=== PATIENT | female | born 1945 | race Caucasian/White ===

== ENCOUNTER 2018-10-18 08:41 | Inpatient (IN) | payer MEDICARE, OTHER, SELFPAY ==
[2018-10-18] VITALS (34 sets, daily range): BP systolic 112–150; BP diastolic 59–85; PULSE 52–72; RESP 14–23; TEMP 36.5–37.3; O2SAT 94–100
--- NOTE | 2018-10-18 08:56 | DI.COMBO_ITS ---
SYMPTOM/DIAGNOSIS: FELL , PAIN,PREOP, HIP FX, EVALUATE POSTERIOR DISPLACEMENT RIGHT HIP AND PELVIS: The lateral views are suboptimal and the femoral neck region is not visualized. There is a subcapital fracture of the proximal right femur without angulation or displacement. The hip joint spaces are well maintained. There is mild bilateral acetabular spurring. No additional fractures are identified. The SI joints and pubic symphysis are not widened. IMPRESSION: Nondisplaced subcapital fracture of the right femur. AP CHEST: There are no prior comparison exams. The heart size is normal. The lungs are well inflated and clear. No infiltrate or effusion is seen. There is no gross evidence of a pneumothorax. IMPRESSION: Negative supine chest. RIGHT HIP CT: There is a nondisplaced fracture of the subcapital region of the proximal femur. There is minimal impaction. No additional fractures are identified. There is acetabular spurring and subchondral cysts seen in the inferior femoral head and inferior acetabulum. IMPRESSION: Subcapital fracture of the right femur. RIGHT HIP IN OR: Fluoroscopy Time: 64.2 seconds Fluoroscopy was provided in the OR for Dr. Saldaña. Hard copy images show placement of partially threaded screws in the femoral neck fixation for fixation of the subcapital fracture. The alignment appears anatomic.
--- NOTE | 2018-10-18 08:57 | W.ED.GENAD ---
Discharge Plan Disposition Patient Disposition: [facility] INPATIENT Condition: Stable Discharge Details Chief Complaint: Orthopedic Clinical Impression: Closed fracture of right hip Reason For Visit: ENRIQUE Primary Care Provider: Mary Jo Reese ED Provider: Giovany Arzola Home Meds and New Rx's Prescriptions: No Action multivitamin [One Daily] 1 EACH tablet 1 tab PO DAILY RF: 0 calcium carbonate-vitamin D3 [Caltrate with Vitamin D3] 1 EACH tablet 1 tab PO BID RF: 0 Medical Decision Making 73-year-old female presents from home after slip and fall on icy ground. She did not strike her head and denies loss of consciousness, neck/back/chest/abdomen pain. She has right hip pain that is worse with movement. IV placed, patient given small aliquot of analgesia, referred for XR. Radiographs reveal concern for right subcapital/impacted hip fracture. Reviewed radiographs with Dr. Saldaña, noncontrast CT images ordered which confirmed an impacted hip fracture. Patient to be admitted to Dr. Saldaña Lab Data Lab results reviewed: Yes I reviewed the patient's lab results. Laboratory Results - last 24 hr 10/18/18 10/18/18 10/18/18 10:21 10:21 10:21 WBC 7.29 RBC 4.20 Hgb 12.6 Hct 38.3 MCV 91.2 MCH 30.0 MCHC 32.9 RDW 13.6 Plt Count 248 MPV 9.8 Immature Gran % 0.1 Neutrophils % 77.3 Lymphocytes % 13.9 Monocytes % 6.0 Eosinophils % 2.3 Basophils % 0.4 Absolute Neutrophils 5.63 Absolute Lymphocytes 1.01 L Absolute Monocytes 0.44 Absolute Eosinophils 0.17 Absolute Basophils 0.03 PT 9.2 L INR 0.9 APTT 22.7 Sodium 144 Potassium 3.7 Chloride 108 H Carbon Dioxide 27.5 Anion Gap 8.5 BUN 13 Creatinine 0.79 Estimated GFR/1.73 m2 >= 60.00 Glucose 96 Calcium 9.0 Magnesium 1.8 Total Bilirubin 0.5 AST 26 ALT 25 Alkaline Phosphatase 67 Troponin I < 0.02 Total Protein 7.1 Albumin 3.1 L Patient ABO/Rh Antibody Screen 10/18/18 10:21 WBC RBC Hgb Hct MCV MCH MCHC RDW Plt Count MPV Immature Gran % Neutrophils % Lymphocytes % Monocytes % Eosinophils % Basophils % Absolute Neutrophils Absolute Lymphocytes Absolute Monocytes Absolute Eosinophils Absolute Basophils PT INR APTT Sodium Potassium Chloride Carbon Dioxide Anion Gap BUN Creatinine Estimated GFR/1.73 m2 Glucose Calcium Magnesium Total Bilirubin AST ALT Alkaline Phosphatase Troponin I Total Protein Albumin Patient ABO/Rh A Positive Antibody Screen Negative ECG Data Attestation: I personally reviewed and interpreted this ECG (s) as follows: Prior ECG tracings: available for review Interpretation: Regular sinus rhythm with a rate of 54, there is left bundle branch block pattern that is unchanged versus comparison from 2018, no ST segment changes HPI General Mode of arrival: ambulatory. Date/Time Provider Initiated Documentation: 10/18/18 08:47. Limitations to Documentation: no limitations. Information obtained by: patient. History of Present Illness 73 year old F presents to the emergency department with the chief complaint of Right hip pain after fall, described as moderate, Quality is described as aching, and is localized to the right and lower extremity. Patient reports no radiation. Patient started experiencing this minute(s) and it has been constant. Rest improves symptom(s), Movement worsens symptoms . Patient notes no other symptoms.; denies headaches. Patient did receive the following treatments prior to arrival, other (IV placed) Related Data Home Medications Medication Instructions Recorded Confirmed calcium carbonate-vitamin D3 1 tab PO BID 11/23/12 10/18/18 [Caltrate with Vitamin D3] multivitamin [One Daily] 1 tab PO DAILY 11/23/12 10/18/18 Allergies Allergy/AdvReac Type Severity Reaction Status Date / Time codeine AdvReac Mild VOMITING Unverified 10/18/18 08:47 shellfish derived AdvReac Mild NAUSEA; Unverified 10/18/18 08:47 HEADACHE General Stated Complaint: Orthopedic [place]: 3 Review of Systems Review of Systems 6 systems reviewed and otherwise - [facility] Surgical History Appendectomy (~1954) Open Carpal Tunnel release (~1997) Skin Cancer Removal (~2009) Tonsillectomy and adenoidectomy (~194) Family History Mother No problems noted. Father Alcohol abuse Heart disease Myocardial infarction Brother No problems noted. Grandfather Allergy to anesthetic Grandfather No problems noted. Grandmother Neoplasm Grandmother No problems noted. Daughter No problems noted. Daughter No problems noted. Social History Smoking and Tabacco status: Never Exam Narrative Exam Narrative: GEN: awake, alert, oriented 3. Pleasant, well groomed, interactive. HEAD: Normocephalic, atraumatic ENT: Mucous membranes moist, oropharynx unremarkable, External ear exam unremarkable EYES: PERRL, EOMI NECK: Full ROM, no MAICO, no menigismus CHEST/RESP: Nontender, clear to auscultation bilateral, no wheeze/rhonchi/rales CARDIOVASCULAR: RRR, no murmur, rub tyrel. 2+ Rad pulse bilateral ABDOMEN: Soft, nontender, no mass. +Bowel sounds EXT: Right lower extremity held in flexion. Tender overlying right lateral hip/greater trochanter. Minimal discomfort with rotation. 2+ DP bilaterally. Sensation intact throughout. Motor exam of hip limited but distal graded at 5 out of 5 no edema, no rash Neuro: Grossly normal neurologic exam, conversant, interactive. Psych: Speech fluent, thoughts congruent, affect normal Course Vital Signs Temperature 36.7 C 10/18/18 08:42 Pulse 54 L 10/18/18 08:42 Respiratory Rate 18 10/18/18 08:42 Blood Pressure 150/74 H 10/18/18 08:42 Pulse Oximetry 100 10/18/18 08:42 Temperature 36.7 C 10/18/18 08:42 Temperature Source Temporal Artery Scan 10/18/18 08:42 Pulse 54 L 10/18/18 08:42 Respiratory Rate 18 10/18/18 08:42 Respiratory Effort Non-Labored 10/18/18 08:42 Blood Pressure 150/74 H 10/18/18 08:42 Blood Pressure Position Supine 10/18/18 08:42 Pulse Oximetry 100 10/18/18 08:42 Oxygen Delivery Method Room Air 10/18/18 08:42 Oxygen Flow Rate 0 10/18/18 08:42 Pain Level 2 10/18/18 08:46
[2018-10-18] MEDS: MORPHine 10 MG/ML VIAL 2 MG IVP (09:02)
--- NOTE | 2018-10-18 09:57 | DI.VRAD_ITS ---
EXAM: XR Right Hip with Pelvis when Performed, 2 or 3 Views EXAM DATE/TIME: 10/18/2018 8:57 AM CLINICAL HISTORY: 73 years old, female; Injury or trauma; Fall; Initial encounter; Blunt trauma (contusions or hematomas); Right; Hip TECHNIQUE: XR Right hip with pelvis when performed, 2 or 3 views COMPARISON: No relevant prior studies available. FINDINGS: Bones/joints: Degenerative changes in the lumbar spine and sacroiliac joints Curvilinear density in the subcapital region of the right hip may represent subtle impacted subcapital femoral neck fracture. Recommend CT for further evaluation. Soft tissues: Normal. Vasculature: Phleboliths in the pelvis. IMPRESSION: Curvilinear density in the subcapital region of the right hip may represent subtle impacted subcapital femoral neck fracture. Recommend CT for further evaluation. Dictated and Authenticated by: Idalia Spear MD. Ordering:NADIA Adair MD
--- NOTE | 2018-10-18 09:59 | DI.VRAD_ITS ---
EXAM: XR Chest, 1 View EXAM DATE/TIME: 10/18/2018 9:18 AM CLINICAL HISTORY: 73 years old, female; Injury or trauma; Fall; Initial encounter; Blunt trauma (contusions or hematomas); Injury details: Right hip injury TECHNIQUE: XR of the chest, 1 view. COMPARISON: No relevant prior studies available. FINDINGS: Lungs: Hyperexpanded lung dale consistent with COPD. No focal consolidation Pleural space: Unremarkable. No pleural effusion. No pneumothorax. Heart/Mediastinum: Unremarkable. No cardiomegaly. Bones/joints: Degenerative changes in the thoracic spine IMPRESSION: Hyperexpanded lung dale consistent with COPD Dictated and Authenticated by: Idalia Spear MD. Ordering:NADIA Adair MD
[2018-10-18] MEDS: Normal Saline 1,000 ML 150 ML IV (10:19)
--- NOTE | 2018-10-18 10:20 | NUR.NOTE ---
Nursing Note: [id number] Kiki Muñiz DCF called--states will call a DCF Utility Agent to come to ER to see pt/mother
[2018-10-18 10:33] LABS: Abs Immature Grans 0.01 k/cumm (0.0-0.09); Absolute Basophil Count 0.03 k/cumm (0.0-0.2); Absolute Eosinophil Count 0.17 k/cumm (0.0-0.7); Absolute Lymphocyte Count 1.01 k/cumm (1.2-3.4); Absolute Monocyte Count 0.44 k/cumm (0.11-0.7); Absolute Neutrophil Count 5.63 k/cumm (1.2-6.7); Basophils % 0.4; Eosinophils % 2.3; HCT 38.3 % (36.0-46.0); HGB 12.6 g/dL (12.0-15.5); Immature Grans % 0.1; Lymphocytes % 13.9; Mean Corp. HGB Concentration 32.9 g/dL (32.0-36.0); Mean Corpuscular Volume 91.2 fL (80-95); Mean Platelet Volume 9.8 fL (8.0-11.0); Neutrophils % 77.3; Platelet Count 248 x1000/uL (130-400); RBC Distribution Width 13.6 % (11.7-14.6); White Blood Cell Count 7.29 k/cumm (4.4-10.8)
[2018-10-18 10:46] LABS: INR 0.9 (0.9-1.1); PTT Activated 22.7 sec (21.0-31.4); Prothrombin Time 9.2 sec (9.3-11.0)
[2018-10-18 10:51] LABS: ALT 25 U/L (12-78); AST 26 U/L (15-37); Albumin 3.1 g/dL (3.4-5.0); Alkaline Phosphatase 67 U/L (46-116); Anion Gap 8.5 mmol/L (3-11); BUN 13 mg/dL (7-18); Bilirubin, Total 0.5 mg/dL (0.2-1.0); CO2 27.5 mmol/L (21.0-32.0); CREATININE 0.79 mg/dL (0.55-1.02); Chloride 108 mmol/L (98-107); Glucose 96 mg/dL (70-100); Magnesium 1.8 mg/dL (1.8-2.4); Potassium 3.7 mmol/L (3.5-5.1); Sodium 144 mmol/L (136-145); Total Protein 7.1 g/dL (6.4-8.2); Troponin I < 0.02 ng/mL (0.00-0.06)
--- NOTE | 2018-10-18 11:46 | DI.VRAD_ITS ---
EXAM: CT Right Lower Extremity Without IV Contrast. Hip EXAM DATE/TIME: 10/18/2018 9:58 AM CLINICAL HISTORY: 73 years old, female; Signs and symptoms; Other: R subcapital hip frx, evaluate posterior displacem TECHNIQUE: CT of the Right lower extremity without intravenous contrast was performed. Exam focused on the hip. All CT scans at this facility use at least one of these dose optimization techniques: automated exposure control; mA and/or kV adjustment per patient size (includes targeted exams where dose is matched to clinical indication); or iterative reconstruction. Coronal and sagittal reformatted images were created and reviewed. COMPARISON: CR XR hip RT complete AP pelvis 10/18/2018 9:09 AM FINDINGS: Bones/joints: There is subtle cortical irregularity at the RIGHT femoral head neck junction with slight impaction. No displacement. The femoral head is intact. Mild degenerative changes of the RIGHT hip joint with osteophyte formation, eburnation and subchondral cyst formation. Soft tissues: Mild subcutaneous edema overlies the RIGHT femur. Intraperitoneal space: Trace free fluid in the pelvis. IMPRESSION: Nondisplaced slightly impacted fracture of the RIGHT femoral head neck junction. Dictated and Authenticated by: Alix Venegas MD. Ordering:МАРИЯ Glynn MD
[2018-10-18 11:58] LABS: Bilirubin Negative (Negative); Blood Negative (Negative); Clarity Clear; Glucose Negative (Negative); Ketones Negative (Negative); Leukocyte Esterase Negative (Negative); Nitrite Negative (Negative); Specific Gravity 1.015 (1.005-1.025); Urobilinogen 0.2 EU/dL (Up TO 0.2); pH 8.5 (5-8)
[2018-10-18] MEDS: Acetaminophen 500 MG TAB 1000 MG PO ×2 (12:34→19:39)
[2018-10-18] MEDS: Celecoxib 200 MG CAP 400 MG PO (12:35)
--- NOTE | 2018-10-18 12:37 | MCONE_ITS ---
Date of service: 10/18/18 Time of Service: 12:36 Assessment and Plan (1) Nondisplaced fracture of neck of right femur: Current visit: Yes Status: Acute Evidence of a Nondisplaced right sided slightly impacted fracture of the Femoral head/neck. Fracture was traumatic following a mechanical fall on ice, without LOC. Mrs. Vogel has a prior history of LBBB, with an essentially normal ECHO showing intact LVEF without Wall Motion Abnormalities. Her current EKG is unchanged, and troponin is reassuring. She has no history of or evidence for underlying CAD, PVD, CHF, or any active cardiac conditions. She also has no history of prior TIA or CVA, CKD, or Diabetes. She is active, certainly with 4+ METs. Patient is very likely low risk for a Intermediate risk procedure - may proceed with planned surgery without need for any further cardiac testing or treatment. History of Present Illness Chief Complaint: Fall with Hip pain Narrative: 73 year old essentially healthy and active woman, being admitted from [facility] Emergency Department on 01/15 with an impacted right sided Subcapital Femoral Neck fracture following a fall. Mrs. 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 She was admitted in December of 2017 following a syncopal episode, likely related to a vasovagal episode following slamming of her finger in a car door. She was noted to have a LBBB on her EKG, but ruled out by serial cardiac biomarkers. She was maintained on telemetry without any arrhythmias. Following discharge she underwent further testing with an essentially normal ECHO (mildly elevated PAP of 45 mmHg), and a 2 week potline monitor showing brief bursts of SVTs and an underlying Bundle Branch Block. She reportedly exercises daily with a 3-4 mile walk and weights at night, and is otherwise very active without any anginal symptoms or Dyspnea on Exertion. Today she was walking her dog when she experienced a mechanical fall on the ice, with resultant right sided hip pain. She did not strike her head, and there was no LOC - she has clear memory of the event. Work-up in the ED consisted of essentially normal labs, including a negative Troponin and urinalysis, and a negative CXR. Imaging of her hip showed evidence of a Non- displaced slightly impacted right Femoral Head / Neck Junction Fracture. Prior to her surgical repair Internal Medicine consult was requested by Dr. Saldaña to provide Preoperative Evaluation. Review of Systems Review of Systems All systems reviewed & are unremarkable except as noted in HPI and below and Unobtainable due to (Right sided Hip pain) [facility] Surgical History Appendectomy (~1954) Open Carpal Tunnel release (~1997) Skin Cancer Removal (~2009) Tonsillectomy and adenoidectomy (~1948) Family History Mother No problems noted. Father Alcohol abuse Heart disease Myocardial infarction Brother No problems noted. Grandfather Allergy to anesthetic Grandfather No problems noted. Grandmother Neoplasm Grandmother No problems noted. Daughter No problems noted. Daughter No problems noted. 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 One lives in [place], and the other in [place], [place]. 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 No history of tobacco or alcohol use. Denies Illicit Drug use. Exam Narrative Exam Narrative: General: Patient appears comfortable, AAOX3, NAD Neck: Supple CV: Regular, nontachycardic, S1S2, No rubs, murmurs, or gallops. Pulmonary: Clear to auscultation bilaterally, no crackles, wheezing, or rhonchi on limited anterior and lateral exam Abdomen: + Bowel Sounds, soft, nontender, nondistended Vascular: Minimal b/l nonpitting lower extremity edema Neurologic: CN II-XII appear grossly intact. No focal deficits. Psych: Normal mood and affect. Results Last Vital Signs Temp 36.8 C 10/18/18 12:27 Pulse 59 L 10/18/18 12:16 Resp 18 10/18/18 08:42 BP 132/59 L 10/18/18 12:16 Pulse Ox 98 10/18/18 12:16 Labs : 10/18/18 10:21 10/18/18 10:21 Laboratory Results - last 24 hr 10/18/18 10/18/18 10/18/18 10:21 10:21 10:21 WBC 7.29 RBC 4.20 Hgb 12.6 Hct 38.3 MCV 91.2 MCH 30.0 MCHC 32.9 RDW 13.6 Plt Count 248 MPV 9.8 Immature Gran % 0.1 Neutrophils % 77.3 Lymphocytes % 13.9 Monocytes % 6.0 Eosinophils % 2.3 Basophils % 0.4 Absolute Neutrophils 5.63 Absolute Lymphocytes 1.01 L Absolute Monocytes 0.44 Absolute Eosinophils 0.17 Absolute Basophils 0.03 PT 9.2 L INR 0.9 APTT 22.7 Sodium 144 Potassium 3.7 Chloride 108 H Carbon Dioxide 27.5 Anion Gap 8.5 BUN 13 Creatinine 0.79 Estimated GFR/1.73 m2 >= 60.00 Glucose 96 Calcium 9.0 Magnesium 1.8 Total Bilirubin 0.5 AST 26 ALT 25 Alkaline Phosphatase 67 Troponin I < 0.02 Total Protein 7.1 Albumin 3.1 L Urine Color Urine Clarity Urine pH Ur Specific [place] Urine Protein Urine Ketones Urine Blood Urine Nitrite Urine Bilirubin Urine Urobilinogen Ur Leukocyte Esterase Urine Glucose Patient ABO/Rh Antibody Screen 10/18/18 10/18/18 10:21 11:43 WBC RBC Hgb Hct MCV MCH MCHC RDW Plt Count MPV Immature Gran % Neutrophils % Lymphocytes % Monocytes % Eosinophils % Basophils % Absolute Neutrophils Absolute Lymphocytes Absolute Monocytes Absolute Eosinophils Absolute Basophils PT INR APTT Sodium Potassium Chloride Carbon Dioxide Anion Gap BUN Creatinine Estimated GFR/1.73 m2 Glucose Calcium Magnesium Total Bilirubin AST ALT Alkaline Phosphatase Troponin I Total Protein Albumin Urine Color Yellow Urine Clarity Clear Urine pH 8.5 H Ur Specific [place] 1.015 Urine Protein Negative Urine Ketones Negative Urine Blood Negative Urine Nitrite Negative Urine Bilirubin Negative Urine Urobilinogen 0.2 Ur Leukocyte Esterase Negative Urine Glucose Negative Patient ABO/Rh A Positive Antibody Screen Negative Imaging Additional studies: Exam(s) [id number] US:Echocardiogram Heart Date of study: 02/13/2018 Transthoracic Echocardiography M-mode, complete 2D, complete spectral Doppler, and color Doppler *STUDY CONCLUSIONS* Impressions: Preserved LV function, mildly elevated PAP, frequent atrial and ventricular ectopy. Summary: 1. Left ventricle: The cavity size was normal. Wall thickness was normal. Intracavitary echoes most suggestive of abnormal apical trabeculations/muscle bands were present. Systolic function was normal. The estimated ejection fraction was 60-65%. Wall motion was normal; there were no regional wall motion abnormalities. 2. Aortic valve: There was trivial regurgitation. 3. Aortic root: The aortic root was at upper normal limits. 4. Ascending aorta: The ascending aorta was at upper normal limits. 5. Mitral valve: Mildly calcified annulus. There was mild regurgitation. 6. Right ventricle: The cavity size was normal. Wall thickness was normal. Systolic function was normal. 7. Pulmonary arteries: Pulmonary systolic pressure was mildly increased. PA peak pressure: 45mm Hg (S). EXAM: XR Right Hip with Pelvis when Performed, 2 or 3 Views EXAM DATE/TIME: 10/18/2018 8:57 AM CLINICAL HISTORY: 73 years old, female; Injury or trauma; Fall; Initial encounter; Blunt trauma (contusions or hematomas); Right; Hip TECHNIQUE: XR Right hip with pelvis when performed, 2 or 3 views COMPARISON: No relevant prior studies available. FINDINGS: Bones/joints: Degenerative changes in the lumbar spine and sacroiliac joints Curvilinear density in the subcapital region of the right hip may represent subtle impacted subcapital femoral neck fracture. Recommend CT for further evaluation. Soft tissues: Normal. Vasculature: Phleboliths in the pelvis. IMPRESSION: Curvilinear density in the subcapital region of the right hip may represent subtle impacted subcapital femoral neck fracture. Recommend CT for further evaluation. Exam(s) EXAM: CT Right Lower Extremity Without IV Contrast. Hip EXAM DATE/TIME: 10/18/2018 9:58 AM CLINICAL HISTORY: 73 years old, female; Signs and symptoms; Other: R subcapital hip frx, evaluate posterior displacem TECHNIQUE: CT of the Right lower extremity without intravenous contrast was performed. Exam focused on the hip. All CT scans at this facility use at least one of these dose optimization techniques: automated exposure control; mA and/or kV adjustment per patient size (includes targeted exams where dose is matched to clinical indication); or iterative reconstruction. Coronal and sagittal reformatted images were created and reviewed. COMPARISON: CR XR hip RT complete AP pelvis 10/18/2018 9:09 AM FINDINGS: Bones/joints: There is subtle cortical irregularity at the RIGHT femoral head neck junction with slight impaction. No displacement. The femoral head is intact. Mild degenerative changes of the RIGHT hip joint with osteophyte formation, eburnation and subchondral cyst formation. Soft tissues: Mild subcutaneous edema overlies the RIGHT femur. Intraperitoneal space: Trace free fluid in the pelvis. IMPRESSION: Nondisplaced slightly impacted fracture of the RIGHT femoral head neck junction. EXAM: XR Chest, 1 View EXAM DATE/TIME: 10/18/2018 9:18 AM CLINICAL HISTORY: 73 years old, female; Injury or trauma; Fall; Initial encounter; Blunt trauma (contusions or hematomas); Injury details: Right hip injury TECHNIQUE: XR of the chest, 1 view. COMPARISON: No relevant prior studies available. FINDINGS: Lungs: Hyperexpanded lung dale consistent with COPD. No focal consolidation Pleural space: Unremarkable. No pleural effusion. No pneumothorax. Heart/Mediastinum: Unremarkable. No cardiomegaly. Bones/joints: Degenerative changes in the thoracic spine IMPRESSION: Hyperexpanded lung dale consistent with COPD
--- NOTE | 2018-10-18 12:50 | OCONE_ITS ---
Date of service: 10/18/18 Time of Service: 10:43 History of Present Illness Chief Complaint: Right hip pain Narrative: Lester is a very healthy and active 73-year-old who was walking her dog this morning. Due to the conditions outside she slipped on some icy surface and fell directly onto the right side. She had immediate pain. She was able to maneuver a small amount but otherwise was unable to fully walk. She was brought in by EMS to the emergency department and diagnosed with subcapital femoral neck fracture. X-rays showed mild valgus angulation and CT scan confirmed no significant displacement. She had pain in the right hip. She kept the hip in a slightly flexed position. No significant rotational deformity. No numbness or tingling. No premorbid pain in the hip. She uses no assistive device and walks 5-7 miles per day. She does have history of a left bundle branch block diagnosed earlier this year but otherwise has no cardiac symptoms previously or today including chest pain, shortness of breath, palpitations. Consult Reason Right femoral neck fracture Assessment and Plan (1) Nondisplaced fracture of neck of right femur: Start date: 10/18/18 Start time: 06:46 Current visit: Yes Status: Joe Garcia is a 73-year-old healthy individual who has a nondisplaced femoral neck fracture. This subcapital femoral neck fracture has very minimal valgus angulation and without any significant displacement in the sagittal plane. I have a difficult time actually tracing the fracture through the medial cortex. Either way this is a nondisplaced complete fracture or a nearly complete fracture. Given no seem displacement, although there are some signs of arthritis on the CT scan and x-ray, I would recommend fixing this with cannulated screws. She is quite familiar with this surgery as her , Catrachito, had the same procedure. Unfortunately, he had some issues with hardware prominence eventually leading to screw removal. Nevertheless, without any significant displacement this is the best procedure to provide. It is possible that she may need a hip replacement due to further degradation of the joint and arthritis or possible avascular necrosis. However, based on the x-rays and CT scans, cannulated screws is the preferred choice. I reviewed the risk of this procedure to include bleeding, infection, pain, stiffness, damage to muscles and tendons, avascular necrosis, worsening arthritis, hardware prominence, hardware failure, blood clot. Despite these risks, she elects to proceed. He does have a known left bundle branch block which is confirmed on today's EKG and similar to the one performed this past summer. Her troponins are negative. Her other labs are benign. I will have the hospitalist see her for preoperative clearance although I expect no issues. I will admit her to my service. Review of Systems Review of Systems All systems reviewed & are unremarkable except as noted in HPI and below PFSH Surgical History Appendectomy (~1954) Open Carpal Tunnel release (~1997) Skin Cancer Removal (~2009) Tonsillectomy and adenoidectomy (~1947) Family History Mother No problems noted. Father Alcohol abuse Heart disease Myocardial infarction Brother No problems noted. Grandfather Allergy to anesthetic Grandfather No problems noted. Grandmother Neoplasm Grandmother No problems noted. Daughter No problems noted. Daughter No problems noted. Social History Smoking and Tabacco status: Never Exam Const General: cooperative, healthy appearing, comfortable and no acute distress Nutritional Appearance: average body habitus Orientation: alert, awake and oriented x3 HENMT Head: normal to inspection Resp Effort & Inspection: normal respiratory effort Extrem Other: Evaluation of the right leg shows no overlying skin change of the hip. No abrasions or breaks in the skin surface. There is no ecchymosis. She keeps the right hip in about 30 degrees flexion. No significant rotational normality seen of the right leg when looking at the feet. She is able to actively dorsiflex, plantarflex, extend and flex the great toe. She endorses full sensation over the deep insufficient peroneal nerves and tibial nerve. The foot is warm well perfused with no significant edema. Palpable DP and PT pulses. Range of motion hip was not attempted given the known fracture. Results Last Vital Signs Temp 36.8 C 10/18/18 12:27 Pulse 59 L 10/18/18 12:16 Resp 18 10/18/18 08:42 BP 132/59 L 10/18/18 12:16 Pulse Ox 98 10/18/18 12:16 Labs : 10/18/18 10:21 10/18/18 10:21 Laboratory Results - last 24 hr 10/18/18 10/18/18 10/18/18 10:21 10:21 10:21 WBC 7.29 RBC 4.20 Hgb 12.6 Hct 38.3 MCV 91.2 MCH 30.0 MCHC 32.9 RDW 13.6 Plt Count 248 MPV 9.8 Immature Gran % 0.1 Neutrophils % 77.3 Lymphocytes % 13.9 Monocytes % 6.0 Eosinophils % 2.3 Basophils % 0.4 Absolute Neutrophils 5.63 Absolute Lymphocytes 1.01 L Absolute Monocytes 0.44 Absolute Eosinophils 0.17 Absolute Basophils 0.03 PT 9.2 L INR 0.9 APTT 22.7 Sodium 144 Potassium 3.7 Chloride 108 H Carbon Dioxide 27.5 Anion Gap 8.5 BUN 13 Creatinine 0.79 Estimated GFR/1.73 m2 >= 60.00 Glucose 96 Calcium 9.0 Magnesium 1.8 Total Bilirubin 0.5 AST 26 ALT 25 Alkaline Phosphatase 67 Troponin I < 0.02 Total Protein 7.1 Albumin 3.1 L Urine Color Urine Clarity Urine pH Ur Specific [place] Urine Protein Urine Ketones Urine Blood Urine Nitrite Urine Bilirubin Urine Urobilinogen Ur Leukocyte Esterase Urine Glucose Patient ABO/Rh Antibody Screen 10/18/18 10/18/18 10:21 11:43 WBC RBC Hgb Hct MCV MCH MCHC RDW Plt Count MPV Immature Gran % Neutrophils % Lymphocytes % Monocytes % Eosinophils % Basophils % Absolute Neutrophils Absolute Lymphocytes Absolute Monocytes Absolute Eosinophils Absolute Basophils PT INR APTT Sodium Potassium Chloride Carbon Dioxide Anion Gap BUN Creatinine Estimated GFR/1.73 m2 Glucose Calcium Magnesium Total Bilirubin AST ALT Alkaline Phosphatase Troponin I Total Protein Albumin Urine Color Yellow Urine Clarity Clear Urine pH 8.5 H Ur Specific [place] 1.015 Urine Protein Negative Urine Ketones Negative Urine Blood Negative Urine Nitrite Negative Urine Bilirubin Negative Urine Urobilinogen 0.2 Ur Leukocyte Esterase Negative Urine Glucose Negative Patient ABO/Rh A Positive Antibody Screen Negative Imaging Chest x-ray: report reviewed Imaging Studies: X-ray of the right hip shows what appears to be a subcapital femoral neck fracture with very minimal valgus impaction. CT scan of the right hip demonstrates a minimally displaced femoral neck fracture in the subcapital region. There appears to be a very slight amount displacement with looking at the superior posterior aspect of the femoral neck /head junction. However, I see no significant mal-angulation. There are some degenerative changes seen within the hip including a cyst in the central aspect of the hip joint. Mild bone spurring is seen around the periphery.
[2018-10-18] MEDS: Bupivacaine LIPOSOME/PF 133 MG/10 ML VIAL IJ (13:24)
[2018-10-18] MEDS: Bupivacaine 0.25% Pres-Free 30 ML VIAL (13:24)
[2018-10-18] MEDS: Lactated Ringers 1,000 ML 80 ML IV (14:53)
[2018-10-18] MEDS: Ketorolac 15 MG/ML VIAL IVP (19:39)
[2018-10-19 00:10] VITALS: BP 120/73; PULSE 62; RESP 16; TEMP 36.8; O2SAT 97
[2018-10-19] MEDS: Ketorolac 15 MG/ML VIAL IVP ×2 (01:46→08:46)
[2018-10-19] MEDS: Lactated Ringers 1,000 ML 80 ML IV (02:21)
[2018-10-19 05:08] VITALS: BP 109/58; PULSE 65; RESP 18; TEMP 36.5; O2SAT 94
[2018-10-19 07:40] VITALS: BP 128/75; PULSE 60; RESP 16; TEMP 36.5; O2SAT 97
[2018-10-19] MEDS: Acetaminophen 500 MG TAB 1000 MG PO ×2 (08:26→14:38)
[2018-10-19] MEDS: Enoxaparin 40 MG/0.4 ML SYR SC (08:27)
[2018-10-19] MEDS: Multivitamin TAB 1 TAB PO (08:27)
[2018-10-19] MEDS: Celecoxib 200 MG CAP PO (09:00)
[2018-10-19] MEDS: Normal Saline Flush 10 ML SYR IVP (10:37)
--- NOTE | 2018-10-19 10:39 | ROE_ITS ---
DATE OF SURGERY: October 18, 2018 PREOPERATIVE DIAGNOSIS: Right non-displaced subcapital femoral neck fracture. POSTOPERATIVE DIAGNOSIS: Same. SURGERY: Cannulated screw fixation of right femoral neck fracture. SURGEON: Renard Saldaña M.D. ANESTHESIA: General. ESTIMATED BLOOD LOSS: FINDINGS: There was a non-displaced fracture of the femoral neck in the subcapital region. It was t ransfixed with three 7.5 mm cannulated screws in an inverted triangle fashion. COMPLICATIONS: None. DISPOSITION: The patient was awakened from anesthesia and taken to the PACU in a stable condition. INDICATION FOR PROCEDURE: Radha is a very active 73-year-old who slipped on the ice this morning w hile walking her dog. She landed on the right hip. She was diagnosed with a non-displaced subcapita l femoral neck fracture, confirmed by both x-ray and CT scan. I had a long discussion about treatmen t options with Radha. Given the non-displaced nature of the fracture, I recommended cannulated scr ew fixation. I reviewed the risks of the procedure to include bleeding, infection, pain, stiffness, malunion, nonunion, avascular necrosis, hardware prominence, hardware failure, need for repeat proced ures, blood clot. Despite these risks, she elected to proceed. PROCEDURE DESCRIPTION: Radha was greeted in the preoperative holding area. Her identity was brooke faust and the correct side was identified and marked. The consent was reviewed with the patient and s igned. The history and physical was updated in the Emergency Department. She was then taken back to the Operating Room. A general anesthetic was given. She was then transferred over to the fracture table. On the fracture table the right arm was placed across her chest and the left arm was placed o nto the arm board. All bony prominences were well-padded. She was slid down onto the peroneal post and secured in this position. The right leg was placed into a traction boot after being well-padded with Webril. The left leg was scissored and secured with a pillow and tape. All bony prominences we re ensured to be very well-padded. Preoperative x-rays were obtained to make sure we were able to ge t clearance for an AP and lateral film of the right hip. This also demonstrated a non-displaced femo ral neck fracture. The right leg was prepped with ChloraPrep. It was draped in a standard fashion. A time-out was performed for safe surgery. Prophylactic antibiotics in the form of Cefazolin were g iven. Using fluoroscopy, the starting point of the cannulated screws was identified. This area was anesthe tized with a mixture of 0.25% Bupivacaine and 10 cc's of Exparel. This was taken down through the so ft tissue and all the way down to the periosteum over the lateral femur. The skin was then punctured with the guidewire from a 7.5 mm cannulated screw system. It was palpated along the lateral cortex and was kept to be central within the femur. It was targeted to be over the inferior aspect of the f emoral neck. Using x-ray I was able to advance this wire in appropriate position. It was confirmed to be a good position both on the AP and lateral. A secondary wire was then placed in a posterior a nd more superior position. A third wire was placed in a similar fashion in an anterior and superior position. Once these three wires were placed, each was checked individually to make sure they were i n an appropriate position, both on the AP and the lateral. Their lengths were then measured after th e skin was incised. The screws were advanced through the soft tissue and bone on power until they we re a few millimeters off of the lateral cortex of the femur. They were then sequentially tightened b y hand multiple times until there was excellent compression of the fracture site and good bite with t he screws. No screw threads appeared to be long, and this was checked both on the AP and lateral. T he guidewires were removed. Final x-rays were obtained. The short threads of the screws appeared to be across the fracture site without penetration into the joint. The wounds were irrigated. They we re closed with a #4-0 Nylon. The wounds were dressed with a Mepilex Silver Dressing. At the end of the case all counts were correct. The patient was transferred over to the hospital stretcher without suffering any notable complications. She was awakened from anesthesia and taken to the PACU in a st able condition.
--- NOTE | 2018-10-19 10:44 | IN_ITS ---
Date of service: 10/19/18 Time of Service: 10:38 PT Notes Inpatient Physical Therapy Evaluation Date: 10/19/2018 Referring Doctor: Dr. Saldaña PT Orders: PT CONSULT: Patient is a 73-year-old female S/P Pinning of Right Femoral Neck Fracture fixed with cannulated screws Precautions: Fall. Standard. Patient Profile/Admitting Diagnosis: Patient was admitted on 10/18/2018 after a sustaining a right subcapital femoral neck fracture from a mechanical fall on the ice. She was diagnosed as having a non-displaced, impacted subcapital femoral neck fracture. Referral was received today for post-operative aftercare and, strengthening, and mobility retraining. PMHX: Unremarkable except for a left bundle branch block. Social History/Home Situation: Patient lives with her in a 2-story house with two steps to enter without rails but with wall on one side that she will use for support. 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 She states that she is feeling okay this morning, denies pain but states that I can feel that it is there, I can feel the muscle. She is agreeable to doing PT evaluation today. Objective: General Observation: Patient seen sitting on recliner chair reading a book. No IV nor any other attachments seen. Mental Status: A and O x3 Pain: Denies pain but reports that she can feel the muscle that was operated on especially with weight-bearing ROM: Right Upper Extremity: WFL Left Upper Extremity: WFL Right Lower Extremity: WFL Left Lower Extremity: WFL Strength: Right Upper Extremity: WFL Left Upper Extremity: WFL Right Lower Extremity: Hip flexors 4+/5. Kne extesnors 4+/5. Knee flexors 4+/5. Ankle dorsiflexors 5/5. Left Lower Extremity: Hip flexors 5/5. Kne extesnors 5/5. Knee flexors 5/5. Ankle dorsiflexors 5/5. Bed Mobility/Transfers: Supine<>sit: Modified independent using both hands for support. Advised to hook involved leg from under using the univolved right leg Sit<>stand: Modified independent using both hands for support. Uses front- wheeled walker for support Bed<>chair: Modified independent using both hands for support and front-wheeled walker. Gait: Patient tolerated level surface ambulation of up to 60 feet with report of some mild discomfort after activity, requiring only supervision assist from this PT. Patient was instructed to lead with the R LE first, put weight on B UE onto walker handles to help off load R LE. Patient also completed two rounds of stairs with 3 steps with 4 inch step height and two steps with 6 inches height while holding onto rails on both sides. Balance: Static Sitting: Normal Dynamic Sitting: Normal Static Standing: Fair Dynamic Standing: Fair Special Tests: Mobility Limitations Standardized Measure [facility] AM-PAC 6 clicks Basic Mobility Inpatient Short Form: Raw Score: 20 CMS score:36% Informed Consent/Education: Patient instructed in purpose of PT consult and plan of care. Instructed in HEP in order to minimize post-operative weakness. Assessment: Patient is a 73-year old referred to physical therapy services with the diagnosis of non-displaced impacted subcapital right femoral neck fracture S/P R hip ORIF. Patient presents with clinical signs and symptoms consistent with post operative procedure, as demonstrated by the following impairment and functional limitations level findings: 1. Limited weight-bearing on R LE due to level of discomfort from postoperative status 2. Increased completion time for performing bed mobility 3. Increased completion time performing transfer tasks 4. Limited ambulation tolerance due to level of pain and discomfort 5. Impaired balance due to pain/discomfort level Patient is assessed as a Low 97640 complexity based on the following: History: Patient is 73-year-old female 1 day S/P ORIF of R Hip for a non- displaced, impacted subcapital femoral neck fracture. Past medical history is unremarkable except for a previous history of a right bundle branch block. Patient demonstrated modified independence with performance of all bed mobility and transfer tasks, supervision assist for short distance ambulation. Examination: Impairments and functional limitations as noted above. Presentation: Stable Decision Making: Low complexity Plan of Care/Treatment Plan: No further skilled services need at this time. Fall precautions, safety recommendations, assistive device management, and HEP education/training have been provided to patient during this session. DISCHARGE RECOMMENDATIONS: Patient to go home today with . Continue with recommendations as above. TREATMENT CODE/TIME: 25 minutes
[2018-10-19 11:39] VITALS: BP 166/74; PULSE 67; RESP 16; TEMP 36.1; O2SAT 97
--- NOTE | 2018-10-19 14:28 | DSE_ITS ---
Date of service: 10/19/18 Time of Service: 14:28 DS: Diagnosis Discharge Diagnosis (1) Nondisplaced fracture of neck of right femur: Status: Acute Discharge Plan Disposition Patient Disposition: HOME Condition: Stable Discharge Details Chief Complaint: Orthopedic Reason For Visit: R FEMORAL NECK FRACTURE Admit Date/Time: 10/18/18 12:46 Admit Provider: Renard Saldaña Attending Provider: Renard Saldaña Primary Care Provider: Mary Jo Reese ED Provider: Giovany Arzola Hospital Course Hospital Course: Patient was admitted to the medical/surgical floor following the procedure. It was tolerated well without any notable medical, surgical, or anesthetic complications. Mobilization began postoperatively. The cain catheter was removed and voiding spontaneously. Vitals were stable. Physical therapy worked with the patient and was cleared for discharge home. No acute medical issues. Home Meds and New Rx's Prescriptions: New celecoxib 200 mg capsule 200 mg PO BID PRN (Reason: pain) Qty: 60 RF: 1 acetaminophen 500 mg tablet 1,000 mg PO Q8H PRN (Reason: pain) Qty: 90 RF: 3 hydrocodone-acetaminophen 5-325 mg tablet 1 tab PO Q4H PRN (Reason: pain) Qty: 5 RF: 0 aspirin 81 mg tablet,delayed release (DR/EC) 81 mg PO BID Qty: 60 RF: 0 Continued multivitamin [One Daily] 1 EACH tablet 1 tab PO DAILY RF: 0 calcium carbonate-vitamin D3 [Caltrate with Vitamin D3] 1 EACH tablet 1 tab PO BID RF: 0 Discharge Instructions Additional Instructions: Dr. Saldaña?s Hip Fracture Discharge Instructions Activity: The most important activity is to walk. You should try to take short walks a few times a day. You have no restrictions on movement or positioning, but do not try to force what you do. You will find some stiffness and weakness with hip flexion (lifting your knee). Do not try to strengthen this too early, continue to practice walking and stairs and this will come. Do NOT try to walk too much too fast but listen to your body and use the walker until you are able to place all of your weight without discomfort. This may take up to 6 weeks. - Outpatient physical therapy can be helpful to help return you to a normal gait and improve your flexibility and strength. This can start around 2 weeks. For some patients, it?s not necessary. Usually this is determined at the time of discharge or at the first post-operative visit. - You should wear the ERICKA hose on both legs for 4 weeks. Dressing: Keep the surgical dressing in place for at least one week. After the first week it may be removed and replace with light gauze and tape or nothing. It may get wet after 3 days but avoid soaking the dressing. If it gets wet, just lightly pat dry. It is important to always keep some gauze between skin folds, especially when you are sitting. Spend some time with the wound exposed when you are lying flat as the incision does wrinkle onto itself. Medications: - You should take Tylenol and an anti-inflammatory Celebrex as your primary pain control medications - You have been prescribed a stronger pain medication Hydrocodone for breakthrough pain, take as needed as prescribed. - You will be taking Aspirin 81mg twice a day for DVT prevention unless instructed otherwise. - If you have constipation you should take Colace or Miralax (both [id number]). It takes most people 3-4 days to have a bowel movement. Follow-up: 2 weeks Referrals: Renard Saldaña MD [ [facility] STAFF PHYSICIAN] - Activity:: Activity as Tolerated Equipment/Supplies:: No Equipment Needed Diet:: As Tolerated Discharge Orders Discharge Orders: Discharge Order (Routine); Ordered 10/19/18 Ordered By: Renard Saldaña DS: Data Vitals/I&O Vitals and I&O: Vital Signs Temperature 36.1 C L 10/19/18 11:39 Temperature Source Tympanic 10/19/18 11:39 Pulse 67 10/19/18 11:39 Pulse Rhythm Regular 10/19/18 07:30 Respiratory Rate 16 10/19/18 11:39 Respiratory Effort Non-Labored 10/19/18 07:30 Respiratory Depth Normal 10/19/18 07:30 Respiratory Pattern Normal 10/19/18 07:30 Blood Pressure 166/74 H 10/19/18 11:39 Blood Pressure Mean 78 10/18/18 12:16 Blood Pressure Position Supine 10/18/18 08:42 Pulse Oximetry 97 10/19/18 11:39 Respiratory End-tidal CO2 27 10/18/18 14:15 Oxygen Delivery Method Room Air 10/19/18 11:39 Oxygen Flow Rate 0 02/25/19 11:39 Pain Level 0 10/19/18 07:40 Intake & Output 10/18/18 10/19/18 10/19/18 23:59 11:59 23:59 Intake Total 1608.667 / 5947.168 1036 / 1792 250 / 1792 Output Total 815 / 815 760 / 1360 600 / 1360 Balance 793.667 / 793.667 782 / 432 -350 / 432 Intake: IV 978.667 / 978.667 972 / 972 Oral 630 / 630 570 / 820 250 / 820 Output: Urine 800 / 800 760 / 1360 600 / 1360 Estimated Blood Loss Other: Urine Color Dark Hilda Yellow Urine Appearance Clear Clear Emesis Description None Voiding Methods Toilet [facility] Surgical History Appendectomy (~1954) Open Carpal Tunnel release (~1997) Skin Cancer Removal (~2009) Tonsillectomy and adenoidectomy (~194) Family History Mother No problems noted. Father Alcohol abuse Heart disease Myocardial infarction Brother No problems noted. Grandfather Allergy to anesthetic Grandfather No problems noted. Grandmother Neoplasm Grandmother No problems noted. Daughter No problems noted. Daughter No problems noted. 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 One lives in [place], and the other in [place], [place]. 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 No history of tobacco or alcohol use. Denies Illicit Drug use.
--- NOTE | 2018-10-19 15:29 | INITIAL_ITS ---
- If Service Date Differs Date of service: 10/19/18 Time of Service: 15:01 Care Management Initial Assess REASON FOR HOSPITALIZATION:: (R) femoral neck fracture PAST MEDICAL HISTORY/PAST SURGICAL HISTORY:: Appendectomy (~1954). Open Carpal Tunnel release (~1997). Skin Cancer Removal (~2009). Tonsillectomy and adenoidectomy (~1947) PREVIOUS FUNCTIONAL STATUS/SOCIAL/FAMILY SUPPORTS:: Radha resides with her SO Chau in [place]. She is independent at baseline, drives, and is able to manage ADL's. CURRENT FUNCTIONAL STATUS:: Currently Radha is lying in bed, pleasant and receptive to discussion. ADVANCE DIRECTIVES:: On file - Chau Velázquez is agent, Marielos Vogel is alternate. Has patient been provided with information about the portal?: Yes Did the patient sign up for the portal?: No CODE STATUS:: Full Code INSURANCE COVERAGE / FINANCIAL ISSUES:: Medicare CURRENT HOME/COMMUNITY SERVICES/EQUIPMENT:: Currently Radha has no services in the community. She has a FWW at home. PRIMARY CARE PHYSICIAN:: Dr. Reese POTENTIAL DISCHARGE NEEDS:: F/U appointment with Dr. Saldaña PATIENT/FAMILY EDUCATION NEEDS:: Review DC instructions, any limitations, and ongoing DC planning discussion. Discuss 'Ask Me Three' ANTICIPATED BARRIERS TO DISCHARGE:: None identified at this time. TRANSPORTATION:: Via private vehicle PLAN:: Radha will return home with no anticipated services once medically cleared. She will F/U with Dr. Saldaña and plan of care as prescribed. Radha will transport via private vehicle.
[2018-10-19 15:59] VITALS: BP 118/67; PULSE 60; RESP 19; TEMP 36.4; O2SAT 98
== END 2018-10-19 16:00 | disposition home or self-care (01) | DRG 482 ==
LOC: ER 12:24 → MS 10-19 09:32 → ER 10-19 17:05 → SUR 10-19 17:05 → MS 10-19 17:05
PROVIDERS: Admitting Provider Student in an Organized Health Care Education/Training Program; Emergency Provider Emergency Medicine; PCP Family Medicine; Visit Provider Student in an Organized Health Care Education/Training Program
PROC: 0QS634Z Reposition Right Upper Femur with Internal Fixation Device, Percutaneous Approach (ICD-10-PCS; CPT 27235; principal; 2018-10-18 12:10)
DX: S72.011A Unspecified intracapsular fracture of right femur, initial encounter for closed fracture (principal); W00.0XXA Fall on same level due to ice and snow, initial encounter; Y93.K1 Activity, walking an animal; I44.7 Left bundle-branch block, unspecified
CPT/HCPCS: 27235; 36415; 51702; 80053; 86850; 86900; 86901; 93005; 96361; 96374; 97161; 99222; 99253; 99285; J1650; NC; 71045; 73501; 73502; 73700; 81003; 83735; 84484; 85025; 85610; 85730; 93010; 99284; J0690; J1100; J1885; J2270; J2405; J3010

== ENCOUNTER 2018-11-02 14:40 | Outpatient (CLI) | payer MEDICARE, OTHER, SELFPAY ==
--- NOTE | 2018-11-02 14:37 | DI.RAD_ITS ---
SYMPTOM/DIAGNOSIS: S/P RT FIXATION OF FRACTURE RIGHT HIP: AP and lateral views. Comparison is made with 10/18/18. There are again seen three screws transfixing the nondisplaced subcapital fracture of the right femur. No change in alignment of the orthopedic hardware or fracture components is seen.
== END 2018-11-02 15:00 ==
PROVIDERS: PCP Family Medicine; Referring Provider Family Medicine; Visit Provider Student in an Organized Health Care Education/Training Program
DX: S72.011D Unspecified intracapsular fracture of right femur, subsequent encounter for closed fracture with routine healing (principal); W00.0XXD Fall on same level due to ice and snow, subsequent encounter
CPT/HCPCS: 73502

== ENCOUNTER 2018-11-30 15:11 | Outpatient (CLI) | payer MEDICARE, OTHER, SELFPAY ==
--- NOTE | 2018-11-30 15:08 | DI.RAD_ITS ---
SYMPTOMS/DIAGNOSIS: F/U RIGHT FEMORAL NECK FRACTURE RIGHT HIP: Two views. Comparison is 11/02/18. There has been no change in alignment of the three screws transfixing the nondisplaced subcapital fracture of the right femur. No new fracture or dislocation is seen. The soft tissues are unremarkable.
== END 2018-11-30 15:31 ==
PROVIDERS: PCP Family Medicine; Referring Provider Family Medicine; Visit Provider Student in an Organized Health Care Education/Training Program
DX: S72.011D Unspecified intracapsular fracture of right femur, subsequent encounter for closed fracture with routine healing
CPT/HCPCS: 73502

== ENCOUNTER → 2019-01-11 14:22 | Outpatient (BNVA) | payer MEDICARE, SELFPAY | PROVIDERS: PCP Family Medicine; Referring Provider Family Medicine; Visit Provider Student in an Organized Health Care Education/Training Program | DX: S72.001A Fracture of unspecified part of neck of right femur, initial encounter for closed fracture (principal); X58.XXXA Exposure to other specified factors, initial encounter ==

== ENCOUNTER 2019-07-05 15:50 | Outpatient (CLI) | payer MEDICARE, OTHER, SELFPAY ==
--- NOTE | 2019-07-05 15:21 | DI.RAD_ITS ---
EXAM: XR HIP RT AP LAT ONLY INDICATION: f/u fracture. COMPARISON: XR hip RT AP lat only from 11/30/2018 TECHNIQUE: 2D digital imaging was performed. FINDINGS: The subcapital fracture of the right femur is unchanged. There are again seen 3 screws transfixing th e fracture which are unremarkable. No new fracture or dislocation is present. The soft tissues are unremarkable. IMPRESSION: Stable right hip.
== END 2019-07-05 16:10 ==
PROVIDERS: PCP Family Medicine; Visit Provider Student in an Organized Health Care Education/Training Program
DX: X58.XXXD Exposure to other specified factors, subsequent encounter (principal); S72.011D Unspecified intracapsular fracture of right femur, subsequent encounter for closed fracture with routine healing
CPT/HCPCS: 99213; 73502

== ENCOUNTER 2020-01-10 16:37 | Outpatient (CLI) | payer MEDICARE, OTHER, SELFPAY | END 2020-01-10 16:57 | PROVIDERS: PCP Family Medicine; Visit Provider Physician Assistant | DX: Z47.89 Encounter for other orthopedic aftercare (principal); S72.001A Fracture of unspecified part of neck of right femur, initial encounter for closed fracture; X58.XXXA Exposure to other specified factors, initial encounter ==

== ENCOUNTER 2020-03-28 01:00 | Outpatient (CLI) | payer MEDICARE, OTHER, SELFPAY ==
--- NOTE | 2020-03-28 08:00 | DI.MAMMO_ITS ---
EXAM: MG MAMMO SCREENING CLINICAL HISTORY: screening,Z12,.39 TECHNIQUE: Mammograms were interpreted according to the usual protocol including computer analysis w [employer] system, tomosynthesis and C-view imaging. COMPARISON: FINDINGS: The breasts are of moderate density with fairly symmetrical distribution of fibroglandular tissue. N o dominant mass or clumped microcalcification is identified in either breast. Current examination is compared with previous examinations including February 2018 and there has been no gross interval change in appearance in comparison with the prior studies. IMPRESSION: No specific evidence of malignancy at this time. Routine screening examinations are suggested at yea rly intervals in this age group according to the ACS ACR guidelines. BI-RADS Category 1 - Negative Breast Density - Category B - Scattered areas of fibroglandular density
== END 2020-03-28 01:20 ==
PROVIDERS: PCP Family Medicine; Visit Provider Family Medicine
DX: Z12.31 Encounter for screening mammogram for malignant neoplasm of breast (principal); R92.2 Inconclusive mammogram
CPT/HCPCS: 77063; 77067

== ENCOUNTER 2021-01-09 15:50 | Outpatient (CLI) | payer MEDICARE, OTHER, SELFPAY ==
--- NOTE | 2021-01-09 15:45 | RT.EKG_ITS ---
APPROVED REPORT Exam: Resting ECG Reason for Exam: Cataract sugery Patient Location: O HR:75 bpm ECG Measurements Heart Rate 75 AXIS LA [id number] P [id number] QRSd 134 QRS 9 QT 435 T 81 QTc 486 Conclusion Sinus rhythm with PACs Left bundle branch block...QRSd>120, broad/notched R
== END 2021-01-09 15:51 | disposition home or self-care (01) ==
LOC: DI.CM 15:52
PROVIDERS: PCP Family Medicine; Visit Provider Family Medicine
DX: Z01.810 Encounter for preprocedural cardiovascular examination (principal)
CPT/HCPCS: 93010

== ENCOUNTER 2021-01-11 02:01 | Outpatient (CLI) | payer MEDICARE, OTHER, SELFPAY ==
--- NOTE | 2021-01-11 15:04 | DI.US_ITS ---
APPROVED REPORT EXAM: Comprehensive 2D, Doppler, and color-flow Echocardiogram Patient Location: Out-Patient Human Resource Management Instructor: Rosa Conner RDCS (AE) Indications: Abnormal EKG, LBBB Other Information Study Quality: Adequate Conclusion Left Ventricle : The left ventricle is normal size. The left ventricular systolic function is normal. The left ventricular ejection fraction is within the normal range. There is normal left ventricular wall thickness. There is normal LV segmental wall motion. The left ventricular diastolic function is normal. LVEF is 56%. Right Ventricle : The right ventricle is normal size. The right ventricular systolic function is norm al. The RVSP is 23.2 mmHg. Atria : The left atrium size is normal. The right atrium size is normal. Valves: There are no hemodynamically significant valvular lesions. Great Vessels : The aortic root is normal in size. The ascending aorta is moderately dilated (3.8cm). Aortic arch is normal in caliber. IVC is normal in size and collapses >50% with inspiration. Please see remainder of study for further details. Wall motion Left Ventricle The left ventricle is normal size. The left ventricular systolic function is normal. The left ventric ular ejection fraction is within the normal range. There is normal left ventricular wall thickness. T here is normal LV segmental wall motion. The left ventricular diastolic function is normal. There is no ventricular septal defect visualized. LVEF is 56%. Right Ventricle The right ventricle is normal size. The right ventricular systolic function is normal. The RVSP is 23 .2 mmHg. Atria The left atrium size is normal. The right atrium size is normal. The interatrial septum is intact wit h no evidence for an atrial septal defect. Aortic Valve The aortic valve is normal in structure. Aortic valve is trileaflet. There is no aortic valvular sten osis. No aortic regurgitation is present. Mitral Valve Mild mitral annular calcification. No evidence of mitral valve stenosis. Trace to mild mitral regurgi tation. Tricuspid Valve The tricuspid valve is normal in structure. There is no tricuspid valve stenosis. Trace to mild tricu spid regurgitation. Pulmonic Valve The pulmonary valve is normal in structure. There is no pulmonic valvular stenosis. Trace pulmonic re gurgitation. Great Vessels The aortic root is normal in size. The ascending aorta is moderately dilated (3.8cm). Aortic arch is normal in caliber. IVC is normal in size and collapses >50% with inspiration. Pericardium There is no pericardial effusion. 2D Dimensions IVSD d PLAX 0.99 cm F: 0.6-1.0 LV Vol A2C d MOD 120.2 mL LVPW d PLAX 0.99 cm F: 0.6 - 1.0 LV Vol A4C d MOD 99.4 mL LVID d PLAX 4.22 cm F: 3.8 - 5.2 LA vol/ BSA A2C s A-L 35.3 mL/m2 LVDs 3.05 cm F: 2.2 - 3.5 LA vol/ BSA A4C s A-L 25.1 mL/m2 Ao Root d 2.73 cm F: 2.7 - 3.3 LA Vol/ BSA Biplane s A-L 30.4 mL/m2 RA Area A4C 10.61 cm2 LA Area A4C s MOD 17.48 cm2 RA Vol/ BSA A4C s A-L 12.8 mL/m2 LA Area A2C s MOD 20.28 cm2 Ao Asc Diam d 3.86 cm F: 2.3 - 3.1 LV EF A4C MOD 58.6 % LV EF Teichholz 53.6 % LV EF A2C MOD 55.0 % LVEF (Diaz's) 55.79 % F: 54 - 74 LV EF Biplane MOD 55.8 % LV Volume 85.43 mL F: 46 - 106 SV 61.63 mL LV Volume Index 46.68 mL/m2 F: 29 - 61 SV Index 33.69 mL/m2 LV Vol Biplane MOD 110.5 mL FS 27.35 % M-Mode TAPSE 2.62 cm (M/F) >1.7 LV Diastology MV E' medial 0.090 (>0.07 m/s) E/A Ratio 0.6 LV E/e MED 8.25 (<14) MV E Vmax 0.74 (0.4-1.3 m/s) MV E' lateral 0.088 (>0.1 m/s) MV A Vmax 1.30 (0.4-1.3 m/s) LV E/e LAT 8.40 (<14) MV E/A Ratio 0.56 MV E/E' medial 8.26 MV E/E' lateral 8.41 Aortic Valve LVOT Area 2.72 cm2 AoV Area Vmax 2.15 cm2 LVOT Vmax 1.20 m/s AoV Area/ BSA (Vmax) 1.17 cm2/m2 LVOT Mean Bj. 0.86 m/s MCKENNA Mean Bj. 2.12 cm2 LVOT Peak Grad 5.7 mmHg MCKENNA Mean Bj. Index 1.16 cm2/m2 LVOT Mean Grad 3.3 mmHg LVOT VTI 0.261 m LVOT Diam s 1.85 cm AoV Vmax 1.52 m/s Velocity Ratio 0.78 AoV Mean Bj. 1.11 m/s AoV Peak Grad 9.2 mmHg LVOT SV 71.08 mL AoV Mean Grad 5.4 mmHg AoV VTI 0.294 m AoV Area VTI 2.41 cm2 AoV Area/ BSA (VTI) 1.32 cm/m2 Mitral Valve MV DT 255 (160-240 msec) MR Vmax 4.47 m/s MV PHT 74 msec MR VTI 1.176 m MV Area PHT 2.98 cm2 MR Peak Grad 79.8 mmHg MV VTI 0.436 m MR Mean Grad 51.5 mmHg MV VTI Annulus 0.449 m MV Area VTI 1.68 (4.0-6.0 cm2) Pulmonary Valve PV Vmax 0.98 (0.5-1.5 m/s) RVOT Peak Gr. 2.15 mmHg PV Peak Grad 3.9 mmHg RVOT Mean Gr. 0.95 mmHg PV Mean Grad 2.0 mmHg RVOT VTI 0.145 m PV VTI 0.196 m RVOT Vmax 0.73 m/s Tricuspid Valve TR Peak Grad 20.2 mmHg TR Vmax 2.25 m/s RA Pressure 3.00 mmHg RVSP (TR) 23.2 mmHg
== END 2021-01-11 02:21 ==
PROVIDERS: PCP Family Medicine; Visit Provider Family Medicine
DX: I44.7 Left bundle-branch block, unspecified (principal); I45.4 Nonspecific intraventricular block; I77.810 Thoracic aortic ectasia
CPT/HCPCS: 93306

== ENCOUNTER 2021-05-28 17:33 | Outpatient (REF) | payer MEDICARE, OTHER, SELFPAY ==
[2021-05-28 15:01] LABS: Magnesium 2.2 mg/dL (1.8-2.4)
[2021-05-28 15:19] LABS: D-Dimer 1317 ng/mlFEU (<500)
== END 2021-05-28 17:34 | disposition home or self-care (01) ==
LOC: LBN 17:33
PROVIDERS: PCP Family Medicine; Visit Provider Nurse Practitioner Family
DX: M79.661 Pain in right lower leg (principal)
CPT/HCPCS: 83735; 85379

== ENCOUNTER 2021-05-29 01:18 | Outpatient (CLI) | payer MEDICARE, OTHER, SELFPAY ==
--- NOTE | 2021-05-29 07:15 | DI.US_ITS ---
Exam(s) US LOWER EXTREMITY VENOUS RT EXAM: US LOWER EXTREMITY VENOUS RT CLINICAL HISTORY: r/o DVT, + ddimer,RT CALF PAIN, M79.661 TECHNIQUE: Right lower extremity venous ultrasound performed using grayscale, color-flow, and spectr al Doppler analysis. COMPARISON: No exams were available for comparison FINDINGS: The right common femoral, femoral and popliteal veins demonstrate normal compressibility, augmentatio n, and color Doppler. The posterior tibial veins are patent. The saphenofemoral junction is unremark able. There is no evidence of a Alvarado cyst. The soft tissues are unremarkable. IMPRESSION: No DVT. DATA REPOSITORY:
== END 2021-05-29 01:38 ==
PROVIDERS: PCP Family Medicine; Visit Provider Nurse Practitioner Family
DX: M79.661 Pain in right lower leg (principal)
CPT/HCPCS: 93971

== ENCOUNTER 2021-11-27 02:40 | Outpatient (CLI) | payer MEDICARE, SELFPAY ==
--- NOTE | 2021-11-27 07:30 | DI.RAD_ITS ---
Exam(s) XR HIP LT COMPLETE AP PELVIS EXAM: XR HIP LT COMPLETE AP PELVIS CLINICAL HISTORY: left hip pain,m25.559. TECHNIQUE: 2D digital imaging was performed of the left hip. Three views were obtained. AP pelvis and lateral left hip views were obtained. COMPARISON: CR XR HIP RT AP LAT ONLY from 07/05/2019 FINDINGS: BONES: No acute fracture is present. No bony destructive lesion is seen. JOINTS: No dislocation present. Partially threaded screws are again seen in the right hip. There are mild degenerative changes in the left hip. Degenerative changes are seen in the visualized lower jairon mbar spine. SOFT TISSUE: Phleboliths are seen in the pelvis. IMPRESSION: Mild degenerative changes in the left hip. DATA REPOSITORY: RADIATION DOSE DELIVERED:
== END 2021-11-27 03:00 ==
LOC: DI 02:40
PROVIDERS: PCP Family Medicine; Visit Provider Family Medicine
DX: M25.552 Pain in left hip (principal); M16.12 Unilateral primary osteoarthritis, left hip
CPT/HCPCS: 73502

== ENCOUNTER 2022-08-01 14:34 | Outpatient (CLI) | payer MEDICARE, SELFPAY ==
--- NOTE | 2022-08-01 14:30 | RT.EKG_ITS ---
APPROVED REPORT Exam: Resting ECG Reason for Exam: SOB, pulse irregular Patient Location: O HR:118 bpm ECG Measurements Heart Rate 118 AXIS MO [id number] P [id number] QRSd 131 QRS 29 QT 319 T 178 QTc 448 Conclusion Atrial fibrillation...? atrial activity Left bundle branch block...QRSd>120, broad/notched R
== END 2022-08-01 14:35 | disposition home or self-care (01) ==
LOC: DI.CM 14:35
PROVIDERS: PCP Family Medicine; Visit Provider Family Medicine
DX: R09.89 Other specified symptoms and signs involving the circulatory and respiratory systems (principal); I48.91 Unspecified atrial fibrillation; I44.7 Left bundle-branch block, unspecified; R06.02 Shortness of breath
CPT/HCPCS: 93010

== ENCOUNTER → 2022-08-02 10:06 | Outpatient (CLI) | payer MEDICARE, SELFPAY ==
[2022-08-02 11:17] LABS: HCT 36.5 % (36.0-46.0); HGB 12.1 g/dL (11.2-15.7); MCH 29.8 pg (27.0-33.0); MCHC 33.2 % (32.0-36.0); MCV 90 fL (80-95); MPV 9.7 fL (8.0-11.0); Platelet Count 314 10^3/uL (130-400); RBC 4.06 10^6/uL (3.93-5.22); RDW 13.5 % (11.7-14.6); RDW-SD 44.8 fL; WBC 5.88 10^3/uL (4.4-10.8)
[2022-08-02 11:41] LABS: ALT 116 U/L (14-59); AST 63 U/L (15-37); Albumin 2.9 g/dL (3.4-5.0); Alkaline Phosphatase 269 U/L (46-116); Anion Gap 5.9 mmol/L (3-11); BUN 11 mg/dL (7-18); Bilirubin, Total 0.7 mg/dL (0.2-1.0); CO2 28.1 mmol/L (21.0-32.0); Calcium 10.3 mg/dL (8.5-10.1); Chloride 103 mmol/L (98-107); Estimated GFR 58.02 (mL/min/1.73m2); Glucose 113 mg/dL (74-106); NT-proBNP 1644 pg/mL (<300); Potassium 3.8 mmol/L (3.5-5.1); Sodium 137 mmol/L (136-145); TSH (W/Ref FT4) 1.88 uIU/mL (0.36-3.74); Total Protein 7.1 g/dL (6.4-8.2)
[2022-08-02] MEDS: Omnipaque 350 MG/ML 100 ML BTL IJ (12:22)
[2022-08-02] MEDS: Normal Saline Flush 10 ML SYR IVP (12:24)
--- NOTE | 2022-08-02 12:25 | DI.CT_ITS ---
Exam(s) CT CHEST PE CTA EXAM: CT CHEST PE CTA CLINICAL HISTORY: r/o lung blood clot, new fib, sob, hypoxia, R06.02. TECHNIQUE: Imaging Protocol: Axial CT angiography was performed with multi-slice acquisition and mu lti-planar and/or 3D reconstructions. CONTRAST MATERIAL: Intravenous: Omnipaque 350 contrast volume:100 mL COMPARISON: No exams were available for comparison FINDINGS: Tracheobronchial tree: Patent where visualized. Pulmonary parenchyma: Bilateral basilar infiltrates associated with the bilateral pleural effusions. There are peripheral pleural based opacity seen in the right upper lobe and left lingula. Given the findings small pulmonary infarcts cannot be excluded. No architectural distortion. Pulmonary Arteries: There is a saddle embolus present. There are emboli present in segmental and sub segmental branches of the pulmonary arteries in both the left and right upper lobes the right middle lobe and the right lower lobe. Mediastinum and Yam[place]: There are mildly enlarged lymph nodes seen in the mediastinum which may be reac tive. The esophagus is unremarkable. Visualized thyroid gland: Unremarkable. Pleura: There are bilateral pleural effusions which are small to moderate in size, left greater than right. Subjacent infiltrates are seen bilaterally which may represent atelectasis or pneumonia. Heart: Mild cardiomegaly. Coronary artery calcifications are present. No pericardial effusion. RV/ LV ratio is 0.9. Aorta: Thoracic aorta non-dilated. Atherosclerosis is present. Upper abdomen: Unremarkable. Soft tissues: Unremarkable. Bones: Within normal limits for the patient's age.There are old left rib fractures present. IMPRESSION: 1. Bilateral pulmonary emboli including a saddle embolus. 2. Peripheral opacities in the left and right upper lobes which may represent small pulmonary infarct . 3. RV to LV ratio of 0.9. 4. Bilateral pleural effusions and subjacent infiltrates which may represent atelectasis, pneumonia o r infarct. 5. Findings were discussed with Lyn Beverly and Dr. Olivia at 12:55 p.m. on 08/02/2022. RADIATION DOSE DELIVERED: 334.61mGy.cm Total DLP DATA REPOSITORY: All CT scans at this facility are submitted to the National Radiology Data Registry (NRDR) Dose Index Registry (DIR) with the [employer] (ACR). RADIATION OPTIMIZATION: All CT scans at this facility use at least one of these dose optimization te chniques: automated exposure control; mA and/or kV adjustment per patient size (includes targeted exa ms where dose is matched to clinical indication); or iterative reconstruction.
== END ==
PROVIDERS: PCP Family Medicine; Visit Provider Family Medicine
DX: I48.91 Unspecified atrial fibrillation (principal); R06.02 Shortness of breath; R09.02 Hypoxemia; R09.89 Other specified symptoms and signs involving the circulatory and respiratory systems; I44.7 Left bundle-branch block, unspecified; I45.4 Nonspecific intraventricular block; I50.9 Heart failure, unspecified; I26.92 Saddle embolus of pulmonary artery without acute cor pulmonale
CPT/HCPCS: 71275; 80053; 85027; 83880; 84443; J3490

== ENCOUNTER 2022-08-02 12:53 | Observation (INO) | payer MEDICARE, SELFPAY ==
[2022-08-02] VITALS (33 sets, daily range): BP systolic 102–133; BP diastolic 66–87; PULSE 77–126; RESP 13–32; TEMP 37–37.2; O2SAT 91–98
--- NOTE | 2022-08-02 12:58 | ED.GENADUL_ITS ---
Discharge Plan Discharge Details Chief Complaint: SOB Primary Care Provider: Mary Jo Reese ED Provider: Severiano Olivia Home Meds and New Rx's Prescriptions: No Action [facility] Lutein See Rx Instructions .ROUTE DAILY Rx Instructions: 10mg daily; Shingrix (PF) 50 mcg/0.5 mL suspension for reconstitution 0.5 ml IM ONCE Qty: 1 1RF Rx Instructions: as a single dose. Repeat in 2 months Xarelto 20 mg tablet 20 mg PO DAILY Qty: 90 6RF Rx Instructions: must administer with evening meal multivitamin [One Daily] 1 EACH tablet 1 tab PO DAILY calcium carbonate-vitamin D3 [Caltrate with Vitamin D3] 1 EACH tablet 1 tab PO BID metoprolol succinate 50 mg tablet extended release 24 hr 25 mg PO DAILY Qty: 45 5RF Medical Decision Making Patient with new onset A. fib rate controlled on beta-blockers. Patient with newly diagnosed saddle emboli with bilateral pulmonary emboli. She was sent from radiology to the emergency department for further management. She was placed on heparin. The patient emergency department appears well mildly tachycardic but not hypoxic normal blood pressure. Case discussed with hospitalist patient to be admitted. Sign Out No HPI General Date/Time Provider Initiated Documentation: 08/02/22 12:58 . HPI Narrative: 76-year-old lady presented to the emergency department after having had a CAT scan of her chest to rule out PE. Radiology called me to advise me that the patient had saddle PE. At the same time her primary care doctor was calling the emergency department for referral. The patient was diagnosed with atrial fibrillation proxy 1 week ago. At that time she was complaining of some shortness of breath. As per her work-up she had a CT scan of her chest done which revealed bilateral PE Patient states that for the past week she has been having dyspnea on exertion. No cough no hemoptysis. No leg pain. Related Data Home Medications Medication Instructions Recorded Confirmed calcium carbonate 600 mg-vitamin 1 tab PO BID 11/23/12 08/02/22 D3 20 mcg (800 unit) tablet (Caltrate with Vitamin D3) multivitamin (One Daily tablet) 1 tab PO DAILY 11/23/12 08/02/22 [facility] Lutein See Rx Instructions .Route DAILY 05/14/21 08/02/22 varicella-zoster glycoE vacc-AS01B 0.5 ml IM ONCE #1 ea 06/04/21 08/02/22 adj(PF) 50 mcg/0.5 mL IM susp, kit (Shingrix (PF)) rivaroxaban 20 mg tablet (Xarelto) 20 mg PO DAILY #90 tabs 08/01/22 08/02/22 metoprolol succinate 50 mg 25 mg PO DAILY #45 tabs 08/02/22 08/02/22 tablet,extended release 24 hr Previous Rx's Medication Instructions Recorded varicella-zoster glycoE vacc-AS01B 0.5 ml IM ONCE #1 ea 06/04/21 adj(PF) 50 mcg/0.5 mL IM susp, kit (Shingrix (PF)) rivaroxaban 20 mg tablet (Xarelto) 20 mg PO DAILY #90 tabs 08/01/22 metoprolol succinate 50 mg 25 mg PO DAILY #45 tabs 08/02/22 tablet,extended release 24 hr Allergies Allergy/AdvReac Type Severity Reaction Status Date / Time codeine AdvReac Mild VOMITING Verified 08/02/22 13:15 shellfish derived AdvReac Mild NAUSEA; Verified 08/02/22 13:15 HEADACHE General [place]: 3 Review of Systems Narrative: Constitutional is been negative for fever chills, negative for malaise, negative for fatigue. Eyes: No visual changes, no tearing ENT: No sore throat, no pain in the ears, no hearing change Cardiovascular see hpi Respiratory:see hpi GI: No abdominal pain, no diarrhea, no nausea, no vomiting : No dysuria, no frequency, no hematuria MSK: No myalgias, no arthralgias Skin: No rash Neurological: No headaches, no focal weakness, no paresthesias, no dizziness Psych: No anxiety, no depression Endo: No weight gain no weight loss Hematology/lymph: No painful nodes PFSH All Active Problems (Updated 08/02/22 @ 12:53 by Lyn Beverly NP) Acute saddle pulmonary embolism (Acute ~07/2022) Hypoxia (Acute) Shortness of breath (Acute) Atrial fibrillation (Chronic) Elevated BP without diagnosis of hypertension (Acute) Leg pain (Acute) Cataract (Chronic) IVCD (intraventricular conduction defect) (Acute) LBBB (left bundle branch block) (Acute) 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 Saldaña Scalp laceration (Acute) Closed head injury (Acute) Closed fracture of finger of right hand (Acute) Medical History Concussion with loss of consciousness <= 30 min LBBB (left bundle branch block) (02/23/18) Osteoporosis 12/26 DEXA: -1.9, -2.9, -1.8 Syncope Surgical History Appendectomy (~1954) Open Carpal Tunnel release (~1997) Skin Cancer Removal (~2009) squamous Tonsillectomy and adenoidectomy (~194) Family History Mother No problems noted. Father Alcohol abuse Heart disease Myocardial infarction Brother No problems noted. Maternal Grandfather Allergy to anesthetic Paternal Grandfather No problems noted. Maternal Grandmother Throat cancer Paternal Grandmother No problems noted. Daughter No problems noted. Daughter No problems noted. Social History Smoking/Tobacco Use Status: Never Second Hand Exposure: No Smoking risk assessment performed?: Yes Alcohol Intake: never Drug use: Never Substance use type: does not use Counseling given: No Caregiver/Support person: No Household members: spouse Housing: house Communication Needs: None Do you need help understanding health information?: Rarely Pets and animals: Yes Pets and animals: dog(s) Sexually active: No Do you think of yourself as: straight/heterosexual Current gender identity: female What is your relationship status?: How often do you talk on the phone with friends or family?: three or more times per week How often do you get together with friends or relatives?: once per week How often do you attend latter-day or restoration services?: 4 or more times per year Do you belong to any clubs or organized social groups?: yes Panel score (0-1 are the most socially isolated patients): 4 What type of physical activity do you participate in: walking, weight lifting and yoga Duration: 60-90 minutes/day Frequency: daily Padmini/Denominational: Confucianism Special padmini needs: No Seatbelt use: always Helmet use: No Drive intox or ride w/intox locomotive driver: No Do you feel safe at home: Yes Do you feel safe in your relationship?: Yes Additional Social history: with 2 children, 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 One lives in [place], and the other in [place], [place]. 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 No history of tobacco or alcohol use. Denies Illicit Drug use. Exam Narrative Exam Narrative: General: A,A Ox3, Calm, no apparent distress, well developed, pleasant and cooperative Head Size/Shape: normocephalic, atraumatic Eyes Pupils: PERRLA Extraocular Mobility: intact and symmetrical Conjunctiva: non-injected, anicteric, no discharge Ears, Nose, Throat Nares: patent bilaterally Oral Cavity: moist Neck: no masses, no crepitus Lymph Nodes: no cervical lymphadenopathy Respiratory Respiratory Effort: no dyspnea Auscultation: clear to auscultation bilaterally, normal breath sounds, no wheezing, no rales/crackles Cardiovascular Heart Auscultation: irregular regular Pulse Quality: +2 equal bilaterally, location(s) Abdomen Inspection and Palpation: soft, non-tender, non-distended, no hepatosplenomegaly Musculoskeletal System Joints, Bones, and Muscles: no deformities Extremities: warm and well-perfused, no cyanosis, capillary refill <2 seconds Skin Skin Inspection: no rash, no lesions, no bruising Neurological Motor: normal tone, normal strength, moving all extremities equally Psychiatric: good insight, good judgement, normal mood and affect
[2022-08-02] MEDS: Heparin 5,000 UNITS/ML VIAL 4400 UNITS IV (13:25)
[2022-08-02 13:31] LABS: PTT Activated 30.6 sec (21.0-27.5)
[2022-08-02 13:42] LABS: NT-proBNP 1708 pg/mL (<300); TSH (W/Ref FT4) 2.14 uIU/mL (0.36-3.74); Troponin I < 50 ng/L (<or=60)
[2022-08-02 14:13] LABS: Source Nasal/Nares
--- NOTE | 2022-08-02 14:15 | HPE_ITS ---
Date of service: 08/02/22 Time of Service: 14:16 Assessment and Plan Assessment and plan (1) Acute saddle pulmonary embolism: Status: Acute Assessment and plan: started on heparin infusion, will discharge on xarelto as previously prescribed but will need new dosing instructions now for PE. oxygenating well on room air planned outpatient echo. (2) Atrial fibrillation: Status: Chronic Assessment and plan: rate controlled\ continue beta armand and anticoagulation echo pending for Friday as outpatient. discussed with DR Pretty History of Present Illness History of Present Illness Chief Complaint: shortness of breath Narrative: presents to ED after having CTA done for shortness of breath. she was diagnosed last week with new afib, rate controlled on beta armand and xarelto and now CT results show a saddle PE. she is oxygenating well on room air. plan to admit for 24 hours on heparin drip and will discharge on xarelto with PE dosing instructions if she remains stable. outpatient echo ordered for friday as it is not available today. Review of Systems All systems reviewed & are unremarkable except as noted in HPI and below Cardiovascular Cardiovascular: Denies chest pain, Denies syncope, Denies rapid heart rate, Denies leg edema, Denies lightheadedness, Reports dyspnea and Reports dyspnea on exertion Respiratory Respiratory: Denies chest congestion, Denies cough, Reports dyspnea and Reports dyspnea on exertion Neurologic Neurologic: Denies syncope PFSH All Active Problems (Updated 08/02/22 @ 12:53 by Lyn Beverly NP) Acute saddle pulmonary embolism (Acute ~07/2022) Hypoxia (Acute) Shortness of breath (Acute) Atrial fibrillation (Chronic) Elevated BP without diagnosis of hypertension (Acute) Leg pain (Acute) Cataract (Chronic) IVCD (intraventricular conduction defect) (Acute) LBBB (left bundle branch block) (Acute) 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 Saldaña Scalp laceration (Acute) Closed head injury (Acute) Closed fracture of finger of right hand (Acute) Medical History Concussion with loss of consciousness <= 30 min LBBB (left bundle branch block) (02/23/18) Osteoporosis 12/26 DEXA: -1.9, -2.9, -1.8 Syncope Surgical History Appendectomy (~1954) Open Carpal Tunnel release (~1997) Skin Cancer Removal (~2009) squamous Tonsillectomy and adenoidectomy (~1947) Family History Mother No problems noted. Father Alcohol abuse Heart disease Myocardial infarction Brother No problems noted. Maternal Grandfather Allergy to anesthetic Paternal Grandfather No problems noted. Maternal Grandmother Throat cancer Paternal Grandmother No problems noted. Daughter No problems noted. Daughter No problems noted. Social History Smoking/Tobacco Use Status: Never Second Hand Exposure: No Smoking risk assessment performed?: Yes Alcohol Intake: never Drug use: Never Substance use type: does not use Counseling given: No Caregiver/Support person: No Household members: spouse Housing: house Communication Needs: None Do you need help understanding health information?: Rarely Pets and animals: Yes Pets and animals: dog(s) Sexually active: No Do you think of yourself as: straight/heterosexual Current gender identity: female What is your relationship status?: How often do you talk on the phone with friends or family?: three or more times per week How often do you get together with friends or relatives?: once per week How often do you attend gnosticist or restorationism services?: 4 or more times per year Do you belong to any clubs or organized social groups?: yes Panel score (0-1 are the most socially isolated patients): 4 What type of physical activity do you participate in: walking, weight lifting and yoga Duration: 60-90 minutes/day Frequency: daily Padmini/Pentecostalism: Taoism Special padmini needs: No Seatbelt use: always Helmet use: No Drive intox or ride w/intox tank truck driver: No Do you feel safe at home: Yes Do you feel safe in your relationship?: Yes Additional Social history: with 2 children, 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 One lives in [place], and the other in [place], [place]. 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 No history of tobacco or alcohol use. Denies Illicit Drug use. Meds Allergies and Home Medications Allergies Allergy/AdvReac Type Severity Reaction Status Date / Time codeine AdvReac Mild VOMITING Verified 08/02/22 13:15 shellfish derived AdvReac Mild NAUSEA; Verified 08/02/22 13:15 HEADACHE Home Medications Medication Instructions Recorded Confirmed Type calcium carbonate 600 mg-vitamin 1 tab PO BID 11/23/12 08/02/22 History D3 20 mcg (800 unit) tablet (Caltrate with Vitamin D3) multivitamin (One Daily tablet) 1 tab PO DAILY 11/23/12 08/02/22 History [facility] Lutein See Rx Instructions .Route DAILY 05/14/21 08/02/22 History varicella-zoster glycoE [id number] 0.5 ml IM ONCE #1 ea 06/04/21 08/02/22 Rx adj(PF) 50 mcg/0.5 mL IM susp, kit (Shingrix (PF)) rivaroxaban 20 mg tablet (Xarelto) 20 mg PO DAILY #90 tabs 08/01/22 08/02/22 Rx metoprolol succinate 50 mg 25 mg PO DAILY #45 tabs 08/02/22 08/02/22 Rx tablet,extended release 24 hr rivaroxaban 15 mg tablet (Xarelto) 15 mg PO BID #42 tabs 08/03/22 Rx Exam Const General: cooperative, healthy appearing (younger than stated age) and comfortable Nutritional Appearance: average body habitus Orientation: alert, awake and oriented x3 HENMT Head: normal to inspection, normocephalic and atraumatic Mouth: oral mucosae normal Chest Chest: normal inspection of the chest Resp Effort & Inspection: normal respiratory effort Auscultation: clear to auscultation bilaterally Cardio Rate: regular rate Rhythm: regular rhythm GI Inspection: normal to inspection Palpation: soft Auscultation: normal bowel sounds Skin General skin exam: no rashes or lesions noted Neuro General: patient alert, patient awake and patient oriented x3 Extrem General: normal to inspection, full ROM, no pedal edema and no calf tenderness Results Labs Result diagrams: 08/03/22 06:00 08/03/22 06:00 Labs: Laboratory Results - last 24 hr 08/02/22 08/02/22 08/02/22 13:11 13:11 14:10 APTT 30.6 H Troponin I < 50 NT-Pro-B Natriuret Pep 1708 H TSH 2.14 COVID-19 Source Nasal/Nares Last Vital Signs Resp 24 08/02/22 13:31
[2022-08-02 14:45] LABS: COVID-19 PCR Negative (Negative)
[2022-08-02 20:06] LABS: PTT Activated 98.2 sec (21.0-27.5)
[2022-08-02] MEDS: Calcium 600mg/Vit D 200U TAB 1 TAB PO (20:22)
[2022-08-02 20:29] LABS: Troponin I < 50 ng/L (<or=60)
[2022-08-03 03:44] LABS: PTT Activated 56.8 sec (21.0-27.5)
[2022-08-03 06:43] VITALS: BP 100/63; PULSE 75; RESP 15; TEMP 36; O2SAT 93
[2022-08-03 07:11] LABS: Abs Immature Grans 0.02 10^3/uL (0.0-0.06); Absolute Basophil Count 0.07 10^3/uL (0.0-0.2); Absolute Eosinophil Count 0.39 10^3/uL (0.0-0.7); Absolute Monocyte Count 0.49 10^3/uL (0.1-0.8); Absolute Neutrophil Count 2.78 10^3/uL (1.2-6.7); Basophils % 1.3; Eosinophils % 7.2; HCT 34.4 % (36.0-46.0); HGB 11.3 g/dL (11.2-15.7); Immature Grans % 0.4; Lymphocytes % 31.2; MCH 29.7 pg (27.0-33.0); MCHC 32.8 % (32.0-36.0); MCV 90 fL (80-95); MPV 10.5 fL (8.0-11.0); Neutrophils % 50.9; Platelet Count 291 10^3/uL (130-400); RBC 3.81 10^6/uL (3.93-5.22); RDW 13.2 % (11.7-14.6); WBC 5.45 10^3/uL (4.4-10.8)
[2022-08-03 07:44] LABS: Anion Gap 8.9 mmol/L (3-11); BUN 11 mg/dL (7-18); CO2 25.1 mmol/L (21.0-32.0); CREATININE 0.8 mg/dL (0.55-1.02); Chloride 104 mmol/L (98-107); Estimated GFR 75.84 (mL/min/1.73m2); Glucose 102 mg/dL (74-106); Potassium 3.9 mmol/L (3.5-5.1); Sodium 138 mmol/L (136-145)
[2022-08-03] MEDS: Calcium 600mg/Vit D 200U TAB 1 TAB PO (07:54)
[2022-08-03] MEDS: Multivitamin TAB 1 TAB PO (07:54)
[2022-08-03] MEDS: Metoprolol CR 50 MG TABCR 25 MG PO (07:55)
[2022-08-03 09:35] LABS: PTT Activated 48.2 sec (21.0-27.5)
--- NOTE | 2022-08-03 12:01 | INITIAL_ITS ---
- If Service Date Differs Date of service: 08/03/22 Time of Service: 12:01 Care Management Initial Assess REASON FOR HOSPITALIZATION:: Pulmonary Embolism PAST MEDICAL HISTORY/PAST SURGICAL HISTORY:: All Active Problems. Acute saddle pulmonary embolism (Acute ~07/2022). Hypoxia (Acute). Shortness of breath (Acute). Atrial fibrillation (Chronic). Elevated BP without diagnosis of hypertension (Acute). Leg pain (Acute). Cataract (Chronic). IVCD (intr aventricular conduction defect) (Acute). LBBB (left bundle branch block) (Acute). 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 Basal cell carcinoma of skin (Acute). Basal cell and squamous cell. Fracture of thoracic spine (Acute). Osteoporosis (Chronic). 12/26 DEXA: -1.9, -2.9, -1.8. Squamous cell skin cancer (Acute). [facility]03/05/17;LEFT PREAURICULAR CHEEK;S/P SX. Tubular adenoma (Acute). 09/01 COLONOSCOPY: TUBULOVILLOUS ADENOMA IN RECTUM. Nondisplaced fracture of neck of right femur (Acute). S/P cannulated screw fixation for right femoral neck fracture. DOS: 10/18/18. Dr. Saldaña. Scalp laceration (Acute). Closed head injury (Acute). Closed fracture of finger of right hand (Acute). Medical History. Concussion with loss of consciousness <= 30 min. LBBB (left bundle branch block) (02/23/18). Osteoporosis. 12/26 DEXA: -1.9, - 2.9, -1.8. Syncope. Surgical History. Appendectomy (~4). Open Carpal Tunnel release (~1997). Skin Cancer Removal (~2009). squamous. Tonsillectomy and adenoidectomy (~1948) PREVIOUS FUNCTIONAL STATUS/SOCIAL/FAMILY SUPPORTS:: Radha lives in [place] with her , Chau. 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 They each have two children, of which only one of his children lives in [place]. They stay connected via zoom. Her and her support each other, and she is independent at baseline. CURRENT FUNCTIONAL STATUS:: Radha was sitting up reading the paper when met with her. She stated that she is looking forward to returning home soon, although she was told that she may need to be observed over the weekend when she was admitted. Per report, she will likely be discharged today after an ambulatory pulse oximetry. She will have a new prescription for Xarelto. CM will call her pharmacy to determine the copay and will send a coupon if necessary. CM will continue to follow. ADVANCE DIRECTIVES:: COLST on file, which states DNR/DNI. Catrachito, her spouse, listed as agent. Has patient been provided with info about the portal/API?: Yes Did the patient sign up for the portal?: Yes (active) CODE STATUS:: Full Code (listed as full code, COLST form indicates DNR/DNI, will notify provider.) INSURANCE COVERAGE / FINANCIAL ISSUES:: MCR/ [employer] MCR replacement CURRENT HOME/COMMUNITY SERVICES/EQUIPMENT:: No current services or equipment. PRIMARY CARE PHYSICIAN:: Mary Jo Reese POTENTIAL DISCHARGE NEEDS:: Prescription support- new Xarelto, prescribed on 08/01/22 for AFIB, now needs different dose, new prescription being sent. CM will follow up on prescription copay and coupon eligibility. PATIENT/FAMILY EDUCATION NEEDS:: Review discharge instructions and limitations, discussion of self care needs inlcuding ask me three. ANTICIPATED BARRIERS TO DISCHARGE:: None identified. TRANSPORTATION:: Via private vehicle by a friend. PLAN:: Anticipate Radha will return home when medically cleared. She indicates that she is very independent and will not require any services upon discharge. Her friend will drive her home via private vehicle. She will follow up with her PCP and discharge plan of care. CM will continue to follow.
--- NOTE | 2022-08-03 12:07 | W.PM.DS.N ---
Date of service: 08/03/22 Time of Service: 12:07 DS: Diagnosis Discharge Diagnosis (1) Acute saddle pulmonary embolism: Status: Acute (2) Atrial fibrillation: Status: Chronic Discharge Plan Disposition Patient Disposition: Home Condition: Improving Discharge Details Reason For Visit: Pulmonary Embolism Admit Date/Time: 08/02/22 14:11 Admit Provider: Dieter Pretty Attending Provider: Dieter Pretty Primary Care Provider: Mary Jo Reese [facility] Course Hospital Course: This is a 76 year old female recently found to be in afib, started on metoprolol and xarelto who presented to ED after having CTA done for shortness of breath.? she was diagnosed last week with new afib, rate controlled on beta armadn and xarelto and now CT results show a saddle PE. she is oxygenating well on room air.? She was admitted for 24 hours on heparin drip and remained hemodynamically stable. she reports inprovement in her shortness of breath with activity and has no chest pain and no shortness of breath at rest. she will be discharged on xarelto with PE dosing instructions with new script for 15 mg po bid for 3 weeks and she will resume 20 mg daily prescription she already has started.? She has an outpatient echo ordered for Friday and should return here sooner for new or worsening issues. ?She is discharged to home with no services. discussed with Dr Pretty ? Home Meds and New Rx's Prescriptions: New Xarelto 15 mg tablet 15 mg PO BID Qty: 42 0RF Rx Instructions: for 3 weeks, then resume 20 mg daily thereafter Continued [facility] Lutein See Rx Instructions .ROUTE DAILY Rx Instructions: 10mg daily; Shingrix (PF) 50 mcg/0.5 mL suspension for reconstitution 0.5 ml IM ONCE Qty: 1 1RF Rx Instructions: as a single dose. Repeat in 2 months multivitamin [One Daily] 1 EACH tablet 1 tab PO DAILY calcium carbonate-vitamin D3 [Caltrate with Vitamin D3] 1 EACH tablet 1 tab PO BID metoprolol succinate 50 mg tablet extended release 24 hr 25 mg PO DAILY Qty: 45 5RF Held Xarelto 20 mg tablet 20 mg PO DAILY Qty: 90 6RF Hold Instructions: hold until completed the 15 mg po BID for 3 weeks is completed. Rx Instructions: must administer with evening meal Discharge Instructions Instructions: Pulmonary Embolism (DC) Stand Alone Forms: Nursing Discharge Form Referrals: Mary Jo Reese [place], [place] [Primary Care Provider] - (Please call Friday to make a follow up appointment.) Activity:: Activity as Tolerated Equipment/Supplies:: No Equipment Needed Diet:: As Tolerated Discharge Orders Discharge Orders: Discharge Order (Routine); Ordered 08/03/22 Ordered By: Gisel Sumner Discharge Data Discharge Date/Time-TO BE ENTERED AT DEPARTURE: 08/03/22 15:05 DS: Summary Time Spent with Patient providing and/or coordinating discharge services: Less than 30 minutes Status at Discharge Functional status at discharge: independent ambulation Overall status at discharge: patient is progressing back to baseline Mental Status: mental status grossly normal Speech and Movement: speech and movement normal Mood: congruent mood Affect: normal affect Exam Const General: cooperative, healthy appearing (younger than stated age) and comfortable Nutritional Appearance: average body habitus Orientation: alert, awake and oriented x3 HENMT Head: normal to inspection, normocephalic and atraumatic Mouth: oral mucosae normal Chest Chest: normal inspection of the chest Resp Effort & Inspection: normal respiratory effort Auscultation: clear to auscultation bilaterally Cardio Rate: regular rate Rhythm: regular rhythm GI Inspection: normal to inspection Palpation: soft Auscultation: normal bowel sounds Skin General skin exam: no rashes or lesions noted Neuro General: patient alert, patient awake and patient oriented x3 Extrem General: normal to inspection, full ROM, no pedal edema and no calf tenderness Psych Mental Status: mental status grossly normal Speech and Movement: speech and movement normal Mood: congruent mood Affect: normal affect DS: Data Vitals/I&O Vitals and I&O: Vital Signs Temperature 36.0 C L 08/03/22 06:43 Temperature Source Tympanic 08/03/22 06:43 Pulse 75 08/03/22 06:43 Pulse Rhythm Irregular 08/03/22 08:00 Pulse 112 H 08/02/22 15:50 Respiratory Rate 15 08/03/22 06:43 Respiratory Effort 08/03/22 08:00 Respiratory Depth Normal 08/03/22 08:00 Respiratory Pattern Normal 08/03/22 08:00 Blood Pressure 100/63 08/03/22 06:43 Blood Pressure Mean 91 08/02/22 15:46 Pulse Oximetry 93 08/03/22 06:43 Oxygen Delivery Method Room Air 08/03/22 06:43 Oxygen Flow Rate 0 08/03/22 06:43 Pain Level 0 08/02/22 16:33 Intake & Output 08/02/22 08/03/22 08/03/22 23:59 11:59 23:59 Intake Total 102.213 / 102.213 76.84 / 76.84 Output Total 500 / 500 400 / 400 Balance -397.787 / -397.787 -323.16 / -323.16 Weight 75.296 kg Intake: IV 102.213 / 102.213 76.84 / 76.84 Output: Urine 500 / 500 400 / 400 Other: Urine Color Yellow Yellow Urine Appearance Clear Urine Odor None Voiding Methods Toilet Toilet Data Completed and Pending Labs on day of discharge: Labs from last 24 hours 08/03/22 08/03/22 08/03/22 09:13 06:00 06:00 WBC 5.45 RBC 3.81 L Hgb 11.3 Hct 34.4 L MCV 90 MCH 29.7 MCHC 32.8 RDW 13.2 Plt Count 291 MPV 10.5 Immature Gran % 0.4 Neutrophils % 50.9 Lymphocytes % 31.2 Monocytes % 9.0 Eosinophils % 7.2 Basophils % 1.3 Nucleated RBC % 0.0 Absolute Neutrophils 2.78 Absolute Lymphocytes 1.70 Absolute Monocytes 0.49 Absolute Eosinophils 0.39 Absolute Basophils 0.07 APTT 48.2 H Sodium 138 Potassium 3.9 Chloride 104 Carbon Dioxide 25.1 Anion Gap 8.9 BUN 11 Creatinine 0.8 Est GFR (CKD-EPI 2020) 75.84 Glucose 102 Calcium 10.0 Troponin I NT-Pro-B Natriuret Pep [facility] COVID-19 Source SARS-CoV-2 (PCR) 08/03/22 08/02/22 08/02/22 03:18 20:05 19:12 WBC RBC Hgb Hct MCV MCH MCHC RDW Plt Count MPV Immature Gran % Neutrophils % Lymphocytes % Monocytes % Eosinophils % Basophils % Nucleated RBC % Absolute Neutrophils Absolute Lymphocytes Absolute Monocytes Absolute Eosinophils Absolute Basophils APTT 56.8 H 98.2 H* Sodium Potassium Chloride Carbon Dioxide Anion Gap BUN Creatinine Est GFR (CKD-EPI 2020) Glucose Calcium Troponin I < 50 NT-Pro-B Natriuret Pep TSH COVID-19 Source SARS-CoV-2 (PCR) 08/02/22 08/02/22 08/02/22 14:10 13:11 13:11 WBC RBC Hgb Hct MCV MCH MCHC RDW Plt Count MPV Immature Gran % Neutrophils % Lymphocytes % Monocytes % Eosinophils % Basophils % Nucleated RBC % Absolute Neutrophils Absolute Lymphocytes Absolute Monocytes Absolute Eosinophils Absolute Basophils APTT 30.6 H Sodium Potassium Chloride Carbon Dioxide Anion Gap BUN Creatinine Est GFR (CKD-EPI 2020) Glucose Calcium Troponin I < 50 NT-Pro-B Natriuret Pep 1708 H TSH 2.14 COVID-19 Source Nasal/Nares SARS-CoV-2 (PCR) Negative PFSH All Active Problems (Updated 08/02/22 @ 12:53 by Lyn Beverly NP) Acute saddle pulmonary embolism (Acute ~07/2022) Hypoxia (Acute) Shortness of breath (Acute) Atrial fibrillation (Chronic) Elevated BP without diagnosis of hypertension (Acute) Leg pain (Acute) Cataract (Chronic) IVCD (intraventricular conduction defect) (Acute) LBBB (left bundle branch block) (Acute) 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 Saldaña Scalp laceration (Acute) Closed head injury (Acute) Closed fracture of finger of right hand (Acute) Medical History Concussion with loss of consciousness <= 30 min LBBB (left bundle branch block) (02/23/18) Osteoporosis 12/26 DEXA: -1.9, -2.9, -1.8 Syncope Surgical History Appendectomy (~1954) Open Carpal Tunnel release (~1997) Skin Cancer Removal (~2009) squamous Tonsillectomy and adenoidectomy (~1948) Family History Mother No problems noted. Father Alcohol abuse Heart disease Myocardial infarction Brother No problems noted. Maternal Grandfather Allergy to anesthetic Paternal Grandfather No problems noted. Maternal Grandmother Throat cancer Paternal Grandmother No problems noted. Daughter No problems noted. Daughter No problems noted. Social History Smoking/Tobacco Use Status: Never Second Hand Exposure: No Smoking risk assessment performed?: Yes Alcohol Intake: never Drug use: Never Substance use type: does not use Counseling given: No Caregiver/Support person: No Household members: spouse Housing: house Communication Needs: None Do you need help understanding health information?: Rarely Pets and animals: Yes Pets and animals: dog(s) Sexually active: No Do you think of yourself as: straight/heterosexual Current gender identity: female What is your relationship status?: How often do you talk on the phone with friends or family?: three or more times per week How often do you get together with friends or relatives?: once per week How often do you attend pentecostalism or mosque services?: 4 or more times per year Do you belong to any clubs or organized social groups?: yes Panel score (0-1 are the most socially isolated patients): 4 What type of physical activity do you participate in: walking, weight lifting and yoga Duration: 60-90 minutes/day Frequency: daily Padmini/Yarsani: Yazidi Special padmini needs: No Seatbelt use: always Helmet use: No Drive intox or ride w/intox 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 One lives in [place], and the other in [place], [place]. 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 No history of tobacco or alcohol use. Denies Illicit Drug use.
[2022-08-03] MEDS: Normal Saline Flush 10 ML SYR (12:12)
[2022-08-03] MEDS: Rivaroxaban 15 MG TABLET PO (12:13)
--- NOTE | 2022-08-03 14:58 | PDOC.CMDIS ---
- If Service Date Differs Date of service: 08/03/22 Time of Service: 14:58 LACE Index Scoring Tool - Questions: Length of Stay (in days): 1 Acuity (Admit via E.D.?): Yes E.D. Visits: 1 - Answers: Total Score: 5 Risk of Readmission: Low Risk Care Management Discharge Reason for Hospitalization: Pulmonary Embolism Discharge Plan: Radha returned home today with no new services. She has a friend who will drive her home via private vehicle. CM called her pharmacy to ensure she would be able to roller picker her prescription for xarelto. It is covered by her insurance with a minimal copayment. She will follow up with her PCP and discharge plan of care. She is happy to be going home. Patient/Family Education Needs: Review discharge instructions and limitations, discussion of self care needs including ask me three.
== END 2022-08-03 15:05 | disposition home or self-care (01) ==
LOC: ER 14:23 → MS 16:20
PROVIDERS: Nurse Practitioner Acute Care; Admitting Provider Internal Medicine; Emergency Provider Emergency Medicine; PCP Family Medicine; Visit Provider Internal Medicine
DX: I26.92 Saddle embolus of pulmonary artery without acute cor pulmonale (principal); Z79.899 Other long term (current) drug therapy; R09.02 Hypoxemia; R06.02 Shortness of breath; I48.20 Chronic atrial fibrillation, unspecified; I44.7 Left bundle-branch block, unspecified; M81.0 Age-related osteoporosis without current pathological fracture; Z20.822 Contact with and (suspected) exposure to COVID-19
CPT/HCPCS: 36415; 80048; 87635; 96365; 96366; 96376; 99285; 83880; 84443; 84484; 85025; 85730; 99217; 99219; G0378; J1644

== ENCOUNTER 2022-08-05 02:22 | Outpatient (CLI) | payer MEDICARE, SELFPAY ==
--- NOTE | 2022-08-05 14:52 | DI.US_ITS ---
APPROVED REPORT EXAM: Comprehensive 2D, Doppler, and color-flow Echocardiogram Patient Location: Out-Patient Chief Mechanical Officer: Rosa Conner RDCS (AE) Indications: SOB, New A Fib, CHF, LBBB Other Information Study Quality: Adequate Conclusion Normal left ventricular wall thickness and chamber size. Estimated ejection fraction is 59% with nor mal wall motion Normal right ventricular size and systolic function Left atrium is mildly dilated. Right atrium is normal in size Trileaflet aortic valve without stenosis or regurgitation Mild mitral annular calcification. Moderate mitral regurgitation Normal tricuspid valve with trace regurgitation. Estimated right ventricular systolic pressure is 28 mmHg Mildly dilated ascending aorta measuring 3.57 cm Wall motion Left Ventricle The left ventricle is normal size. The left ventricular systolic function is normal. The left ventric ular ejection fraction is within the normal range. There is normal left ventricular wall thickness. T here is normal LV segmental wall motion. There is no ventricular septal defect visualized. LVEF is 59 %. Right Ventricle The right ventricle is normal size. The right ventricular systolic function is normal. The RVSP is 27 .9mmHg. Atria Left atrium is mildly dilated. The right atrium size is normal. The interatrial septum is intact with no evidence for an atrial septal defect. Aortic Valve The aortic valve is normal in structure. Aortic valve is trileaflet. There is no aortic valvular sten osis. No aortic regurgitation is present. Mitral Valve Mild mitral annular calcification. No evidence of mitral valve stenosis. Moderate mitral regurgitatio n. Tricuspid Valve The tricuspid valve is normal in structure. There is no tricuspid valve stenosis. Trace tricuspid reg urgitation. Pulmonic Valve The pulmonary valve is normal in structure. There is no pulmonic valvular stenosis. Trace pulmonic re gurgitation. Great Vessels The aortic root is normal in size. The ascending aorta is mildly dilated. Aortic arch is normal in ca liber. IVC is normal in size and collapses >50% with inspiration. Pericardium There is no pericardial effusion. 2D Dimensions IVSD d PLAX 0.94 cm F: 0.6-1.0 LV Vol A2C d MOD 74.9 mL LVPW d PLAX 0.90 cm F: 0.6 - 1.0 LV Vol A4C d MOD 83.8 mL LVID d PLAX 4.17 cm F: 3.8 - 5.2 LA vol/ BSA A2C s A-L 42.4 mL/m2 LVDs 2.85 cm F: 2.2 - 3.5 LA vol/ BSA A4C s A-L 25.7 mL/m2 Ao Root d 2.94 cm F: 2.7 - 3.3 LA Vol/ BSA Biplane s A-L 33.8 mL/m2 RA Area A4C 15.67 cm2 LA Area A4C s MOD 18.19 cm2 RA Vol/ BSA A4C s A-L 21.5 mL/m2 LA Area A2C s MOD 22.80 cm2 Ao Asc Diam d 3.57 cm F: 2.3 - 3.1 LV EF A4C MOD 57.1 % LV EF Teichholz 58.9 % LV EF A2C MOD 59.2 % LVEF (Diaz's) 58.34 % F: 54 - 74 LV EF Biplane MOD 58.3 % LV Volume 63.14 mL F: 46 - 106 SV 47.90 mL LV Volume Index 33.94 mL/m2 F: 29 - 61 SV Index 25.77 mL/m2 LV Vol Biplane MOD 82.1 mL FS 30.80 % M-Mode TAPSE 1.96 cm (M/F) >1.7 LV Diastology MV E' medial 0.096 (>0.07 m/s) MV E Vmax 1.33 (0.4-1.3 m/s) LV E/e MED 13.80 (<14) MV E/E' medial 13.85 Aortic Valve LVOT Area 3.43 cm2 AoV Area Vmax 3.15 cm2 LVOT Vmax 1.07 m/s AoV Area/ BSA (Vmax) 1.69 cm2/m2 LVOT Mean Bj. 0.78 m/s MCKENNA Mean Bj. 3.06 cm2 LVOT Peak Grad 4.6 mmHg MCKENNA Mean Bj. Index 1.65 cm2/m2 LVOT Mean Grad 2.7 mmHg LVOT VTI 0.183 m LVOT Diam s 2.05 cm AoV Vmax 1.17 m/s Velocity Ratio 0.91 AoV Mean Bj. 0.87 m/s AoV Peak Grad 5.4 mmHg LVOT SV 62.60 mL AoV Mean Grad 3.4 mmHg AoV VTI 0.170 m AoV Area VTI 3.68 cm2 AoV Area/ BSA (VTI) 1.98 cm/m2 Mitral Valve MV DT 253 (160-240 msec) MR Vmax 4.94 m/s MV PHT 73 msec MR VTI 1.375 m MV Area PHT 3.00 cm2 MR Peak Grad 97.5 mmHg MV VTI 0.203 m MR Mean Grad 62.3 mmHg MV VTI Annulus 0.237 m MV Area VTI 3.71 (4.0-6.0 cm2) Pulmonary Valve PV Vmax 0.99 (0.5-1.5 m/s) RVOT Peak Gr. 2.92 mmHg PV Peak Grad 3.9 mmHg RVOT Mean Gr. 1.40 mmHg PV Mean Grad 1.9 mmHg RVOT VTI 0.092 m PV VTI 0.158 m RVOT Vmax 0.85 m/s Tricuspid Valve TR Peak Grad 24.8 mmHg TR Vmax 2.49 m/s RA Pressure 3.00 mmHg RVSP (TR) 27.9 mmHg
== END 2022-08-05 02:42 ==
PROVIDERS: PCP Family Medicine; Visit Provider Family Medicine
DX: I44.7 Left bundle-branch block, unspecified (principal); I45.4 Nonspecific intraventricular block; I48.91 Unspecified atrial fibrillation; I50.9 Heart failure, unspecified; R06.02 Shortness of breath
CPT/HCPCS: 93306

== ENCOUNTER 2022-08-05 10:45 | Outpatient (CLI) | payer MEDICARE, SELFPAY | END 2022-08-05 10:46 | disposition home or self-care (01) | LOC: DI.CM 10:47 | PROVIDERS: PCP Family Medicine; Visit Provider Family Medicine | CPT/HCPCS: 93010 ==

== ENCOUNTER 2022-10-17 13:15 | Outpatient (RCR) | payer MEDICARE, SELFPAY ==
--- NOTE | 2022-10-17 13:45 | HOLTER_ITS ---
APPROVED REPORT Conclusion This is a Holter monitor ordered for atrial fibrillation and fatigue Atrial fibrillation was present throughout with an average heart rate of 85. Minimum was 67, maximum 109 There were no ventricular dysrhythmias. There was no high-grade AV block or pauses greater than 3 se conds No patient symptoms were reported
== END 2022-10-22 23:59 | disposition home or self-care (01) ==
LOC: CARDOPNVT 13:15
PROVIDERS: PCP Family Medicine; Visit Provider Family Medicine
DX: I48.91 Unspecified atrial fibrillation (principal); R53.83 Other fatigue
CPT/HCPCS: 93227; 93225; 93226

== ENCOUNTER 2022-11-27 03:31 | Outpatient (CLI) | payer MEDICARE, SELFPAY ==
[2022-11-27 12:34] LABS: ALT 22 U/L (14-59); AST 20 U/L (15-37); Albumin 3.4 g/dL (3.4-5.0); Alkaline Phosphatase 63 U/L (46-116); Anion Gap 6.2 mmol/L (3-11); BUN 12 mg/dL (7-18); Bilirubin, Total 0.6 mg/dL (0.2-1.0); CO2 29.8 mmol/L (21.0-32.0); Calcium 10.2 mg/dL (8.5-10.1); Chloride 109 mmol/L (98-107); Estimated GFR 57.66 (mL/min/1.73m2); Glucose 91 mg/dL (74-106); Potassium 4.1 mmol/L (3.5-5.1); Sodium 145 mmol/L (136-145)
== END 2022-11-27 03:32 | disposition home or self-care (01) ==
LOC: LOS 03:33
PROVIDERS: PCP Family Medicine; Visit Provider Family Medicine
DX: R03.0 Elevated blood-pressure reading, without diagnosis of hypertension (principal); I48.91 Unspecified atrial fibrillation; R94.5 Abnormal results of liver function studies
CPT/HCPCS: 36415; 80053

== ENCOUNTER 2023-03-06 01:45 | Outpatient (CLI) | payer MEDICARE, SELFPAY ==
--- NOTE | 2023-03-06 13:48 | DI.US_ITS ---
APPROVED REPORT EXAM: Comprehensive 2D, Doppler, and color-flow Echocardiogram Patient Location: Out-Patient Deputy K 9: Osito Chapin RDMS, RVT Indications: PE, fatigue, LBBB, afib Other Information Study Quality: Adequate Conclusion Normal left ventricular wall thickness and chamber size. EF is 55%. Septal motion is consistent wit h an intraventricular conduction delay. There are no segmental wall motion abnormalities Normal right ventricular size and systolic function Left atrium is moderately dilated. Right atrial size is normal The aortic valve is mildly sclerotic and trileaflet without stenosis or regurgitation Mitral annular calcification. Trace mitral regurgitation Normal tricuspid valve with mild regurgitation. Estimated right ventricular systolic pressure is 26 mmHg Mildly dilated ascending aorta 3.53 cm Wall motion Left Ventricle The left ventricle is normal size. The left ventricular systolic function is normal. The left ventric ular ejection fraction is within the normal range. There is normal left ventricular wall thickness. T here is normal LV segmental wall motion. There is no ventricular septal defect visualized. LVEF is 55 %. Right Ventricle The right ventricle is normal size. Right ventricular systolic function is grossly normal. The RVSP i s 25.7 mmHg. Atria Left atrium is moderately dilated. The right atrium size is normal. The interatrial septum is intact with no evidence for an atrial septal defect. Aortic Valve The aortic valve is mildly sclerotic Aortic valve is trileaflet. There is no aortic valvular stenosis . No aortic regurgitation is present. Mitral Valve Moderate mitral annular calcification. No evidence of mitral valve stenosis. Trace mitral regurgitati on. Tricuspid Valve The tricuspid valve is normal in structure. There is no tricuspid valve stenosis. Mild tricuspid regu rgitation. Pulmonic Valve The pulmonary valve is normal in structure. There is no pulmonic valvular stenosis. Trace pulmonic re gurgitation. Great Vessels The aortic root is normal in size. The ascending aorta is mildly dilated. IVC is normal in size and c ollapses >50% with inspiration. Pericardium There is no pericardial effusion. 2D Dimensions IVSD d PLAX 0.52 cm F: 0.6-1.0 LV Vol A2C d MOD 67.4 mL LVPW d PLAX 0.53 cm F: 0.6 - 1.0 LV Vol A4C d MOD 54.7 mL LVID d PLAX 4.15 cm F: 3.8 - 5.2 LA vol/ BSA A4C s A-L 46.3 mL/m2 LVDs 3.15 cm F: 2.2 - 3.5 LA Area A4C s MOD 24.80 cm2 Ao Root d 2.95 cm F: 2.7 - 3.3 LV EF A4C MOD 51.1 % Ao Asc Diam d 3.53 cm F: 2.3 - 3.1 LV EF A2C MOD 52.1 % LV EF Teichholz 46.8 % LV EF Biplane MOD 49.8 % LVEF (Diaz's) 49.79 % F: 54 - 74 SV 30.21 mL LV Volume 46.65 mL F: 46 - 106 SV Index 16.25 mL/m2 LV Volume Index 25.08 mL/m2 F: 29 - 61 LV Vol Biplane MOD 60.7 mL FS 23.10 % M-Mode TAPSE 1.31 cm (M/F) >1.7 LV Diastology MV E' medial 0.147 (>0.07 m/s) MV E Vmax 1.09 (0.4-1.3 m/s) LV E/e MED 7.40 (<14) MV E' lateral 0.088 (>0.1 m/s) LV E/e LAT 12.35 (<14) MV E/E' medial 7.42 MV E/E' lateral 12.37 Aortic Valve LVOT Area 3.08 cm2 AoV Area Vmax 2.25 cm2 LVOT Vmax 0.81 m/s AoV Area/ BSA (Vmax) 1.21 cm2/m2 LVOT Mean Bj. 0.56 m/s MCKENNA Mean Bj. 2.04 cm2 LVOT Peak Grad 2.6 mmHg MCKENNA Mean Bj. Index 1.10 cm2/m2 LVOT Mean Grad 1.4 mmHg LVOT VTI 0.130 m LVOT Diam s 1.95 cm AoV Vmax 1.11 m/s Velocity Ratio 0.73 AoV Mean Bj. 0.84 m/s AoV Peak Grad 5.0 mmHg LVOT SV 40.18 mL AoV Mean Grad 3.1 mmHg AoV VTI 0.195 m AoV Area VTI 2.07 cm2 AoV Area/ BSA (VTI) 1.11 cm/m2 Mitral Valve MV DT 156 (160-240 msec) MV PHT 45 msec MV Area PHT 4.86 cm2 MV VTI 0.240 m MV Area VTI 1.68 (4.0-6.0 cm2) Pulmonary Valve PV Vmax 0.70 (0.5-1.5 m/s) RVOT Peak Gr. 1.01 mmHg PV Peak Grad 1.9 mmHg RVOT Mean Gr. 0.50 mmHg PV Mean Grad 1.0 mmHg RVOT VTI 0.095 m PV VTI 0.127 m RVOT Vmax 0.50 m/s Tricuspid Valve TR Peak Grad 22.7 mmHg TR Vmax 2.38 m/s RA Pressure 3.00 mmHg RVSP (TR) 25.7 mmHg
== END 2023-03-06 02:05 ==
LOC: DI 01:45
PROVIDERS: PCP Family Medicine; Visit Provider Family Medicine
DX: I26.92 Saddle embolus of pulmonary artery without acute cor pulmonale (principal); I44.7 Left bundle-branch block, unspecified; I48.91 Unspecified atrial fibrillation
CPT/HCPCS: 93306

== ENCOUNTER 2023-05-05 10:01 | Outpatient (CLI) | payer MEDICARE, SELFPAY ==
--- NOTE | 2023-05-05 10:00 | RT.EKG_ITS ---
APPROVED REPORT Exam: Resting ECG Reason for Exam: Recheck Patient Location: O HR:98 bpm ECG Measurements Heart Rate 98 AXIS DC [id number] P [id number] QRSd 129 QRS 3 QT 392 T 78 QTc 501 Conclusion Atrial fibrillation...? atrial activity Left bundle branch block...QRSd>120, broad/notched R
== END 2023-05-05 10:02 | disposition home or self-care (01) ==
LOC: DI.CM 10:02
PROVIDERS: PCP Family Medicine; Visit Provider Family Medicine
DX: I48.91 Unspecified atrial fibrillation (principal)
CPT/HCPCS: 93010

== ENCOUNTER 2023-05-26 04:16 | Outpatient (CLI) | payer MEDICARE, SELFPAY ==
[2023-05-26 12:50] LABS: HCT 39.2 % (36.0-46.0); HGB 12.5 g/dL (11.2-15.7); MCH 29.9 pg (27.0-33.0); MCHC 31.9 % (32.0-36.0); MCV 94 fL (80-95); MPV 9.9 fL (8.0-11.0); Platelet Count 281 10^3/uL (130-400); RBC 4.18 10^6/uL (3.93-5.22); RDW 13.8 % (11.7-14.6); RDW-SD 47.1 fL; WBC 8.45 10^3/uL (4.4-10.8)
[2023-05-26 13:23] LABS: ALT 23 U/L (14-59); AST 24 U/L (15-37); Albumin 3.3 g/dL (3.4-5.0); Alkaline Phosphatase 66 U/L (46-116); Anion Gap 7.8 mmol/L (3-11); BUN 12 mg/dL (7-18); Bilirubin, Total 0.7 mg/dL (0.2-1.0); CO2 26.2 mmol/L (21.0-32.0); CREATININE 0.9 mg/dL (0.55-1.02); Calcium 10.4 mg/dL (8.5-10.1); Chloride 106 mmol/L (98-107); Estimated GFR 65.44 (mL/min/1.73m2); Glucose 92 mg/dL (74-106); Potassium 4.2 mmol/L (3.5-5.1); Sodium 140 mmol/L (136-145); Total Protein 7.1 g/dL (6.4-8.2)
[2023-05-29 08:20] LABS: Lab Add On Test DONE
[2023-05-29 08:59] LABS: Vitamin D 25 Total 35.7 ng/mL (30-100)
== END 2023-05-26 04:17 | disposition home or self-care (01) ==
LOC: LOS 04:17
PROVIDERS: PCP Family Medicine; Visit Provider Family Medicine
DX: I26.92 Saddle embolus of pulmonary artery without acute cor pulmonale (principal); I48.91 Unspecified atrial fibrillation; C44.92 Squamous cell carcinoma of skin, unspecified; E83.52 Hypercalcemia
CPT/HCPCS: 36415; 80053; 82306; 85027; 84443

== ENCOUNTER 2023-05-30 02:12 | Outpatient (CLI) | payer MEDICARE, SELFPAY ==
[2023-05-30 20:14] LABS: Parathyroid Hormone,Intact 89 pg/mL (19-88)
[2023-06-02 12:53] LABS: Albumin 57.4 % (55.8-66.1); Albumin g/dL 3.9 g/dL (3.6-5.2); Total Protein 6.8 g/dL (6.3-8.2)
== END 2023-05-30 02:13 | disposition home or self-care (01) ==
LOC: LOS 02:13
PROVIDERS: PCP Family Medicine; Visit Provider Family Medicine
DX: E83.52 Hypercalcemia (principal)
CPT/HCPCS: 36415; 83970; 84165

== ENCOUNTER 2023-06-13 19:25 | Outpatient (REF) | payer MEDICARE, SELFPAY ==
[2023-06-14 09:19] LABS: Calcium Urine 34.1 mg/dL (See Note); Calcium Urine 24 hr 307 mg/24hr (100-300); Timed Urine Volume 900 mL
== END 2023-06-13 19:26 | disposition home or self-care (01) ==
LOC: LBN 19:25
PROVIDERS: PCP Family Medicine; Visit Provider Family Medicine
DX: E83.52 Hypercalcemia (principal); R79.89 Other specified abnormal findings of blood chemistry
CPT/HCPCS: 82340

== ENCOUNTER → 2023-07-03 00:58 | Outpatient (CLI) | payer MEDICARE, SELFPAY ==
--- NOTE | 2023-07-03 15:00 | DI.DEXA_ITS ---
Exam(s) XR DEXA BONE DENSITY W/WO FLORENCIA EXAM: XR DEXA BONE DENSITY W/WO FLORENCIA CLINICAL HISTORY: hypercalcemia z78.0 asymptomatic menopausal state TECHNIQUE: [employer] C densitometer analysis of left hip, lumbar spine and left forearm. Lat era survey image of the thoracic and lumbar spine. COMPARISON: 2008 FINDINGS: Lateral view of the thoracic and lumbar spine shows no evidence of compression fractures. Degenerati ve changes and scoliosis noted Bone mineral density measurements of the lumbar spine correspond to a total T-score of -2.1, in the osteopenic range. This represents a 6.3 percent decrease from 2008. Bone mineral density measurements of the left hip correspond to a total T-score of -2.5. The femora l neck T-score is -2.6, in the osteoporotic range. The total bone density has decreased by 8.0 Per cent from the previous exam. Theleft forearm bone mineral density measurements correspond to a T-score of the distal 3rd of -3.1, in the osteoporotic range. The forearm was not analyzed on the prior exam.. IMPRESSION: Osteopenia of the lumbar spine. Osteoporosis of the hip and forearm.
== END ==
PROVIDERS: PCP Family Medicine; Visit Provider Family Medicine
DX: Z13.820 Encounter for screening for osteoporosis (principal); Z78.0 Asymptomatic menopausal state; M81.0 Age-related osteoporosis without current pathological fracture
CPT/HCPCS: 77080

== ENCOUNTER 2023-07-03 02:14 | Outpatient (CLI) | payer MEDICARE, SELFPAY ==
[2023-07-03 12:37] LABS: ESR 16 mm/hr (0-30)
[2023-07-03 13:57] LABS: ALT 25 U/L (14-59); AST 24 U/L (15-37); Albumin 3.6 g/dL (3.4-5.0); Alkaline Phosphatase 70 U/L (46-116); Anion Gap 11.1 mmol/L (3-11); BUN 9 mg/dL (7-18); Bilirubin, Total 0.6 mg/dL (0.2-1.0); CO2 24.9 mmol/L (21.0-32.0); CREATININE 0.9 mg/dL (0.55-1.02); Calcium 10.2 mg/dL (8.5-10.1); Chloride 105 mmol/L (98-107); Estimated GFR 65.44 (mL/min/1.73m2); Glucose 107 mg/dL (74-106); Potassium 3.7 mmol/L (3.5-5.1); Sodium 141 mmol/L (136-145); Total Protein 7.5 g/dL (6.4-8.2)
[2023-07-03 22:56] LABS: Parathyroid Hormone,Intact 105 pg/mL (19-88)
== END 2023-07-03 02:15 | disposition home or self-care (01) ==
PROVIDERS: PCP Family Medicine; Visit Provider Family Medicine
DX: E83.52 Hypercalcemia (principal); R79.89 Other specified abnormal findings of blood chemistry; I10 Essential (primary) hypertension
CPT/HCPCS: 36415; 80053; 85652; 83970

== ENCOUNTER 2024-07-20 02:12 | Outpatient (CLI) | payer MEDICARE, SELFPAY ==
[2024-07-20 10:32] LABS: HCT 41.7 % (36.0-46.0); HGB 13.4 g/dL (11.2-15.7); MCH 30.4 pg (27.0-33.0); MCHC 32.1 % (32.0-36.0); MCV 95 fL (80-95); MPV 9.2 fL (8.0-11.0); Platelet Count 305 10^3/uL (130-400); RBC 4.41 10^6/uL (3.93-5.22); RDW 13.2 % (11.7-14.6); RDW-SD 46.3 fL; WBC 7.56 10^3/uL (4.4-10.8)
[2024-07-20 11:22] LABS: ALT 24 U/L (14-59); AST 22 U/L (15-37); Albumin 3.6 g/dL (3.4-5.0); Alkaline Phosphatase 78 U/L (46-116); Anion Gap 11.3 mmol/L (3-11); BUN 10 mg/dL (7-18); Bilirubin, Total 0.68 mg/dL (0.2-1.0); CO2 25.7 mmol/L (21.0-32.0); Chloride 106 mmol/L (98-107); Estimated GFR 57.31 (mL/min/1.73m2); Glucose 110 mg/dL (74-106); Potassium 3.9 mmol/L (3.5-5.1); Sodium 143 mmol/L (136-145); Total Protein 7.8 g/dL (6.4-8.2)
[2024-07-20 18:02] LABS: Parathyroid Hormone,Intact 139.1 pg/mL (19.0-88.0)
[2024-07-20 18:40] LABS: Hepatitis C Ab w Rflx HCV PCR Negative (Negative)
== END 2024-07-20 02:13 | disposition home or self-care (01) ==
LOC: LBO 02:12
PROVIDERS: PCP Family Medicine; Visit Provider Family Medicine
DX: R79.89 Other specified abnormal findings of blood chemistry (principal); E21.5 Disorder of parathyroid gland, unspecified; Z11.59 Encounter for screening for other viral diseases; I10 Essential (primary) hypertension
CPT/HCPCS: 36415; 80053; 85027; 86803; 83970

== ENCOUNTER 2024-08-31 01:16 | Outpatient (CLI) | payer MEDICARE, SELFPAY ==
--- NOTE | 2024-08-31 06:30 | DI.NM_ITS ---
Exam(s) NM PARATHYROID SCAN CLINICAL HISTORY: elevated parathyroid hormone,r79.89. COMPARISON: No exams were available for comparison EXAMINATION: Injected Dose: 20 mCi Tc-99m sestamibi Initial Images: 15 minutes Delayed images: 2 hours FINDINGS: Initial imaging demonstrates symmetric thyroid uptake. On the delayed images, there is persistent foc us of increased radiotracer uptake overlying the inferior pole of the right thyroid gland. The findi ngs are suspicious for right inferior parathyroid adenoma. 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
== END 2024-08-31 01:36 ==
LOC: DI 01:16
PROVIDERS: PCP Family Medicine; Visit Provider Family Medicine
DX: R79.89 Other specified abnormal findings of blood chemistry (principal)
CPT/HCPCS: 78070

== ENCOUNTER 2024-09-23 09:25 | Outpatient (CLI) | payer MEDICARE, SELFPAY ==
[2024-09-23 13:04] LABS: ALT 21 U/L (14-59); AST 20 U/L (15-37); Albumin 3.5 g/dL (3.4-5.0); Alkaline Phosphatase 81 U/L (46-116); Anion Gap 6.9 mmol/L (3-11); BUN 8 mg/dL (7-18); Bilirubin, Total 0.67 mg/dL (0.2-1.0); CO2 29.1 mmol/L (21.0-32.0); Calcium 10.5 mg/dL (8.5-10.1); Chloride 107 mmol/L (98-107); Estimated GFR 56.95 (mL/min/1.73m2); Glucose 99 mg/dL (74-106); Potassium 4.4 mmol/L (3.5-5.1); Sodium 143 mmol/L (136-145); Total Protein 7.6 g/dL (6.4-8.2)
[2024-09-23 21:27] LABS: Parathyroid Hormone,Intact 126.8 pg/mL (19.0-88.0)
== END 2024-09-23 09:26 | disposition home or self-care (01) ==
PROVIDERS: PCP Family Medicine; Visit Provider Family Medicine
DX: I10 Essential (primary) hypertension (principal); R79.89 Other specified abnormal findings of blood chemistry
CPT/HCPCS: 36415; 80053; 83970

== ENCOUNTER 2024-09-25 08:48 | Outpatient (REF) | payer MEDICARE, SELFPAY ==
[2024-09-26 08:58] LABS: Calcium Urine 17.1 mg/dL (See Note); Calcium Urine 24 hr 86 mg/24hr (100-300); Timed Urine Volume 500 mL
== END 2024-09-25 08:49 | disposition home or self-care (01) ==
LOC: LBN 08:48
PROVIDERS: PCP Family Medicine; Visit Provider Family Medicine
DX: R79.89 Other specified abnormal findings of blood chemistry (principal)
CPT/HCPCS: 81050; 82340

== ENCOUNTER → 2025-03-09 14:44 | Outpatient (BNVA) | payer MEDICARE, SELFPAY | PROVIDERS: PCP Family Medicine; Referring Provider Family Medicine; Visit Provider Surgery | DX: D48.5 Neoplasm of uncertain behavior of skin (principal); I48.91 Unspecified atrial fibrillation; Z79.01 Long term (current) use of anticoagulants | CPT/HCPCS: 99204 ==

== ENCOUNTER 2025-03-11 00:58 | Outpatient (CLI) | payer MEDICARE, SELFPAY ==
[2025-03-11 12:20] LABS: HCT 40.4 % (36.0-46.0); HGB 13.2 g/dL (11.2-15.7); MCH 30.1 pg (27.0-33.0); MCHC 32.7 % (32.0-36.0); MCV 92 fL (80-95); MPV 10.3 fL (8.0-11.0); Platelet Count 272 10^3/uL (130-400); RBC 4.38 10^6/uL (3.93-5.22); RDW 13.2 % (11.7-14.6); RDW-SD 44.8 fL; WBC 5.38 10^3/uL (4.4-10.8)
[2025-03-11 13:53] LABS: ALT 25 U/L (14-59); AST 22 U/L (15-37); Albumin 3.4 g/dL (3.4-5.0); Alkaline Phosphatase 74 U/L (46-116); Anion Gap 7.1 mmol/L (3-11); BUN 7 mg/dL (7-18); Bilirubin, Total 0.8 mg/dL (0.2-1.0); CO2 28.9 mmol/L (21.0-32.0); Calcium 10.1 mg/dL (8.5-10.1); Chloride 106 mmol/L (98-107); Estimated GFR 87.37 (mL/min/1.73m2); Glucose 97 mg/dL (74-106); Potassium 4.0 mmol/L (3.5-5.1); Sodium 142 mmol/L (136-145); Total Protein 7.2 g/dL (6.4-8.2); Vitamin B12 402 pg/mL (193-986)
== END 2025-03-11 00:59 | disposition home or self-care (01) ==
LOC: LOS 00:58
PROVIDERS: PCP Family Medicine; Visit Provider Family Medicine
DX: Z79.01 Long term (current) use of anticoagulants (principal); I48.91 Unspecified atrial fibrillation; E83.52 Hypercalcemia; I10 Essential (primary) hypertension
CPT/HCPCS: 36415; 80053; 85027; 82607

== ENCOUNTER 2025-03-14 06:43 | Day surgery (SDC) | payer MEDICARE, SELFPAY ==
[2025-03-14 07:15] VITALS: BP 146/106; PULSE 112; RESP 22; TEMP 36.2; O2SAT 98
[2025-03-14] MEDS: Lactated Ringers 1,000 ML 80 ML IV (07:33)
[2025-03-14 08:22] VITALS: BMI 29.4
--- NOTE | 2025-03-14 08:22 | ANES.PREOP_ITS ---
General Info Date of Service Date Performed: 03/14/25 Height: 5 ft 4.75 in Weight: 79.6 kg Body Mass Index (BMI): 29.4 Surgical Procedure: Operation Date: 03/14/25 08:40 Proposed Procedure Side Surgeon p Excision Hand Skin Neoplasm Left Tahmina Arias MD Meds Allergies and Home Medications Allergies Allergy/AdvReac Type Severity Reaction Status Date / Time codeine AdvReac Mild VOMITING Verified 03/14/25 07:12 shellfish derived AdvReac Mild NAUSEA; Verified 03/14/25 07:12 HEADACHE Home Medication ?Medication ?Instructions ?Recorded multivitamin (One Daily tablet) 1 tab PO DAILY 3 [facility] Lutein See Rx Instructions .Route D AILY 05/14/21 rivaroxaban 20 mg tablet (Xarelto) 20 mg PO DAILY #90 tabs 11/23/24 metoprolol succinate 25 mg 25 mg PO DAILY #90 tabs 10/19 tablet,extended release 24 hr Current Visit Medications: Current Medications Generic Name Dose Route Start Last Admin Trade Name Darronq PRN Reason Stop Dose Admin Ringer's Solution 1,000 mls @ 80 mls/hr 03/14/25 06:00 03/14/25 07:33 IV 03/14/25 23:59 80 mls/hr INFUSION AMELIA Administration Cefazolin Sodium/Dextrose 2 gm in 50 mls @ 100 mls/hr 03/14/25 06:00 Ancef Duplex IVPB 03/14/25 23:59 PREOP AMELIA IV Miscellaneous Supplies 1 each 03/14/25 06:00 Iv Access IV 03/14/25 23:59 DIRECTED AMELIA Sodium Chloride 0 ml 03/14/25 06:00 Normal Saline Flush 10 Ml Syr IV 03/14/25 23:59 PRN PRN Sodium Chloride 0 ml 03/14/25 06:00 Normal Saline 10 Ml Vial IJ 03/14/25 23:59 DIRECTED PRN Sterile Water 0 ml 03/14/25 06:00 Water,Injection,Sterile 10 Ml Vial IJ 03/14/25 23:59 DIRECTED PRN PFSH Active Problems Active Problems: Problem Status Onset Code Anticoagulant long-term use Acute Z79.01 Skin lesion of hand Acute L98.9 Hypocalciuria Acute E83.59 Elevated parathyroid hormone Acute R79.89 Serum calcium elevated Acute E83.52 Vaginal atrophy Acute N95.2 Atrial fibrillation Chronic I48.91 Elevated BP without diagnosis of hypertension Acute R03.0 LBBB (left bundle branch block) Acute I44.7 Basal cell carcinoma of skin Acute C44.91 Osteoporosis Chronic M81.0 Squamous cell skin cancer Acute C44.92 Medical History Medical History Acute saddle pulmonary embolism (~07/2022) Hypoxia Shortness of breath Leg pain Cataract IVCD (intraventricular conduction defect) 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 Saldaña Tonsillectomy and adenoidectomy (~1947) Skin Cancer Removal (~2009) squamous Open Carpal Tunnel release (~1997) Appendectomy (~1954) Tobacco Smoking/Tobacco Use Status: Never Passive smoking exposure: No Second hand exposure: No Alcohol Alcohol Intake: never Substance Use Substance use: Never Substance use type: does not use Vital Signs and Lab Results Vital Signs Most Recent Vital Signs in EMR: Most Recent Vital Signs Temp Pulse Resp BP Pulse Ox 36.2 C L 112 H 22 146/106 H 98 03/14/25 07:15 03/14/25 07:15 03/14/25 07:15 03/14/25 07:15 03/14/25 07:15 Lab Results Complete Blood Count: WBC, (4.4-10.8) 5.38 10^3/uL 03/11/25, 08:58 RBC, (3.93-5.22) 4.38 10^6/uL 03/11/25, 08:58 Hgb, (11.2-15.7) 13.2 g/dL 03/11/25, 08:58 Hct, (36.0-46.0) 40.4 % 03/11/25, 08:58 Plt Count, (130-400) 272 10^3/uL 03/11/25, 08:58 Complete Metabolic Panel: Sodium, (136-145) 142 mmol/L 03/11/25, 08:58 Potassium, (3.5-5.1) 4.0 mmol/L 03/11/25, 08:58 Chloride, (98-107) 106 mmol/L 03/11/25, 08:58 Carbon Dioxide, (21.0-32.0) 28.9 mmol/L 03/11/25, 08 :58 BUN, (7-18) 7 mg/dL 03/11/25, 08:58 Creatinine, (0.55-1.02) 0.7 mg/dL 03/11/25, 08:58 Est GFR (CKD-EPI 2020), (mL/min/1.73m2) 87.37 03/11/25, 08:58 Calcium, (8.5-10.1) 10.1 mg/dL 03/11/25, 08:58 Albumin, (3.4-5.0) 3.4 g/dL 03/11/25, 08:58 Glucose, (74-106) 97 mg/dL 03/11/25, 08:58 Liver Function Panel: ALT, (14-59) 25 U/L 03/11/25, 08:58 AST, (15-37) 22 U/L 03/11/25, 08:58 Anesthesia Assessment and Plan Anesthesia History Personal History: No History of Anesthesia Complications Family History: No Family History of Anesthesia Complications Exercise Tolerance Exercise Tolerance: Metabolic Equivalents>4 Pertinent Negatives Pertinent Negatives: No Symptoms of GERD Cardiac & Pulmonary Exam Cardiac Exam: Normal S1/S2 Heart Sounds Pulmonary Exam: Clear Bilateral Breath Sounds Implantable Cardiac Device Does patient have a Pacemaker or an ICD?: No Airway Exam Known Difficult Airway: No Mallampati Class: 2 Mouth Opening: Normal (> 3cm) Thyromental Distance: Greater than 3 cm Neck Range of Motion: Full ROM Neck Circumference: Normal Teeth Condition: Normal Dentition ASA Classification ASA Score: ASA 2 Emergency Case?: No NPO Status NPO Status: NPO Clears >2 hours, Solids >8 hours Anesthesia Plan Resuscitation Status: Full Code Anesthesia Technique: General Anesthesia Airway Planned: Natural Airway Monitors Used: Standard Monitors
--- NOTE | 2025-03-14 08:31 | W.PM.DSUDISC ---
Date of service: 03/14/25 Discharge Plan Disposition Patient Disposition: Home Condition: Stable Discharge Details Attending Provider: Tahmina Arias Primary Care Provider: Mary Jo Reese Recommendations for Follow Up Recommended tests to be ordered by follow up provider: Surgeon will follow up margin status and post op healing Home Meds and New Rx's Prescriptions: No Action [facility] See Rx Instructions .ROUTE DAILY Rx Instructions: 10mg daily; metoprolol succinate 25 mg tablet extended release 24 hr 25 mg PO DAILY Qty: 90 5RF multivitamin [One Daily] 1 EACH tablet 1 tab PO DAILY Xarelto 20 mg tablet 20 mg PO DAILY Qty: 90 6RF Rx Instructions: must administer with evening meal Discharge Instructions Additional Instructions: Remove outer dressing and shower in 48 hours. Wash gently over steristrips with soapy hands. Rinse, pat dry. Do not peel glue or submerge under water (no bathtub or pool). No need to replace the outer bandage unless you want to to keep it clean and dry. Ok to use hand normally for activities of daily life. Avoid movements that stretch the skin open. Resume XARELTO blood thinner on 03/16/25. Stand Alone Forms: Anesthesia Discharge InstRylie Ibarra (DSU) Activity:: as above Remove Dressings/Wound Care:: Do Not Remove Shower/Bathe:: 48 hours Diet:: As Tolerated DS: Diagnosis Discharge Diagnosis (1) Malignant neoplasm of skin of left upper extremity: Status: Acute
[2025-03-14] MEDS: ceFAZolin 2 GM/50 ML BAG IVPB (09:03)
--- NOTE | 2025-03-14 09:27 | SKI_PTH ---
PATIENT: Radha Vogel LOC: [facility] U#:[id number] AGE/SX: 79/F ROOM: RE03/14/[address]: Tahmina Arias MD : 1945 BED: DIS: 03/14/2025 SPEC #: [id number] RECD: 03/14/25 12:53 STATUS: BRENDAN PRICE #: [id number] MANNY: 03/14/25 09:[address]: Tahmina Arias DEPT: Surgical Specimen RECD BY: Izzy Dickson ENTERED: 03/14/25 12:54 SP TYPE: FRANKI ANTOINE DR: Mary Jo Reese MD, DC Tissues: 1 - SKIN BIOPSY(SHAVE/PUNCH) Procedures: SKIN LEVEL 4 Comments: [id number]
[2025-03-14] MEDS: Lidocaine 1% Pres-Free W/EPI 1/200,000 10 ML VIAL (09:45)
[2025-03-14] MEDS: Bupivacaine 0.5% Pres-Free W/EPI 10 ML VIAL (09:45)
[2025-03-14 10:07] VITALS: BP 113/79; PULSE 62; RESP 16; TEMP 35.5; O2SAT 98
--- NOTE | 2025-03-14 10:15 | W.ANESPOSTOP ---
Postoperative Evaluation Date, Time and Location Date Performed: 03/14/25 Time Performed: 10:16 Patient Location: Day Surgery Unit Vital Signs Most Recent Imported Vital Signs: Most Recent Vital Signs Temp Pulse Resp BP Pulse Ox 35.5 C L 62 16 113/79 98 03/14/25 10:07 03/14/25 10:07 03/14/25 10:07 03/14/25 10:07 03/14/25 10:07 Pain Score Most Recent Pain Score: Most Recent Pain Score Pain Level 0 03/14/25 10:07 Assessment Mental Status: Awake (Alert & Oriented to Patient Baseline) Airway and Respiratory Function: Patent airway with normal (patient baseline) respiratory exam Cardiovascular Function: Hemodynamically Stable Hydration Status: Adequately Hydrated Nausea & Vomiting: No Nausea or Vomiting Pain: Pt. Denies Any Pain Peripheral Nerve Block: Patient did not receive a nerve block Postoperative Comments:: Dosed pt with IV Beta armand, HR < 100. Rupert Scott CRNA
--- NOTE | 2025-03-14 10:24 | W.PM.OP ---
Operative Note Operative Note Refer to Anesthesia Record Procedure Description: Preoperative diagnosis: Left hand skin neoplasm Postoperative diagnosis: Left hand skin neoplasm Procedure: Wide local excision of left hand skin neoplasm Surgeon: Tahmina Arias M.D. EBL: 20mL Anesthesia: General with natural airway Specimen: Left hand skin lesion (long stitch lateral, short superior) Complications: None Procedure Description: This is an 79 year old female with a neoplasm of the skin. The location is on the dorsum of the left hand. The lesion measures 1 cm round and is consistent with an ulcerated basal cell skin cancer or a squamous cell skin cancer. Due to the patient being anticoagulated for stroke prophylaxis, a staged approach with a punch biopsy followed by definitive excision is not desired. Her anticoagulant was held for 1 diagnostic and therapeutic procedure which was planned as a wide local excisional biopsy of the skin lesion. In the office we discussed the procedure risks, benefits, alternatives, and expectations. Postoperative expectations and instructions were reviewed. All of her questions were answered. Informed consent was obtained. On the day of surgery, she was taken to the operating room. In the procedure room she was placed supine with her hand outstretched on to an operating table. All pressure points were padded appropriately. General anesthesia was induced and the hand was prepped and draped in the usual sterile fashion. Time out was performed. Local anesthetic was infiltrated into the skin around the skin lesion. A an ellipse was traced around the skin lesion and a 1:3 ratio. The incision was oriented longitudinally on the hand. An incision was made in the traced ellipse with a 15 blade scalpel. Cautery was used to remove the skin from the underlying tissues. The specimen was marked for orientation and passed off the field. The subcutaneous tissues were reapproximated with interrupted 3-0 Vicryl. This resulted in bleeding from a superficial vein so this was suture ligated with 3-0 Vicryl suture. Interrupted 4-0 Monocryl was placed to reapproximate and closed the skin in subcuticular fashion. 3 simple interrupted 4-0 nylon sutures were used to help maintain hemostasis in the midpoint of the incision, and to relieve tension on the incision at the midpoint. The skin was washed and dried. Steri-Strips were applied. All sponge and instrument counts were correct at the end of the case. The patient tolerated the procedure well. She woke from anesthesia in the operating room and transferred to the recovery room in stable condition. No complications Date of Procedure: 03/14/25
[2025-03-14 10:37] VITALS: BP 139/94; PULSE 88; RESP 18; TEMP 35.7; O2SAT 99
== END 2025-03-14 11:27 | disposition home or self-care (01) ==
PROVIDERS: PCP Family Medicine; Visit Provider Surgery
PROC: (CPT 11622; principal; 2025-03-14 08:30)
DX: C44.609 Unspecified malignant neoplasm of skin of left upper limb, including shoulder (principal); I48.91 Unspecified atrial fibrillation; Z79.01 Long term (current) use of anticoagulants; Z86.711 Personal history of pulmonary embolism; I45.2 Bifascicular block
CPT/HCPCS: 11622; 12041; 88305; J0690; J2003; J2004; J2371; J2704

== ENCOUNTER → 2025-03-23 10:17 | Outpatient (BNVA) | payer MEDICARE, SELFPAY | PROVIDERS: PCP Family Medicine; Referring Provider Family Medicine; Visit Provider Surgery | DX: Z09 Encounter for follow-up examination after completed treatment for conditions other than malignant neoplasm (principal); R89.6 Abnormal cytological findings in specimens from other organs, systems and tissues | CPT/HCPCS: 99024 ==

== ENCOUNTER → 2025-04-01 09:08 | Outpatient (BNVA) | payer MEDICARE, SELFPAY | PROVIDERS: PCP Family Medicine; Referring Provider Family Medicine; Visit Provider Surgery | DX: Z09 Encounter for follow-up examination after completed treatment for conditions other than malignant neoplasm (principal); C44.609 Unspecified malignant neoplasm of skin of left upper limb, including shoulder | CPT/HCPCS: 99213 ==